=== PATIENT | female | born 1970 | race Caucasian/White ===

== ENCOUNTER 2025-09-01 08:47 | Emergency (ER) | payer OTHER, SELFPAY ==
--- OUTSIDE RECORDS SUMMARY | 2025-06-03 19:00 | XMS_ITS | Continuity of Care Document ---
Author Organization [facility] Address [address] [place] [phone] Phone Care Team Providers Care White Sugar Pan Tank Operator Name Role Phone Radha NUÑEZ, FACKatlyn, Juvenal Unavailable Unavailab le Procedures Procedure Date ELECTROCARDIOGRAM REPORT Advance Directives Directive Yes / No Effective Date File Name No Information Encounters Encounter Description Practice Location Reason(s) For Visit Diagnoses Date Provider Providers Copied on Encounter [facility], [address] [place] [address], [id number], tel:[phone] [facility] ER No Information Radha Sanford. [address] [place], [place] [address], [place], [id number], . tel:[phone] Referring Provider: Juvenal Garcia, [facility] [place] , [place], [address]. tel:[phone] Family History Family Member Type Diagnosis Age At Onset No Information Payers Payer name Insurance type Covered democrat ID Authorjim paniagua(s) [place] [id number] Social History Type Description Quantity Date Captured Comments Sex Female Smoking Status No Information Chief Complaint And Reason For Visit No Information Reason For Referral Reason For Referral No Information History Of Present Illness Encounter Date Complaint History Of Prese nt Illness No Information Functional Status Date Functional Assessmen t No Information Instructions Date Instruction Additional Infor mation No Information Assessments Type Assessment Date No Information Patient Care Teams Name Effective Dates (start - stop) Status Members No Information
--- NOTE | ~2025-09-01 | XR_ITS ---
Examination: XR chest 2V Clinical History: soa Comparison: None Technique: PA and Lateral Findings: Cardiomediastinal silhouette normal size and configuration. Lungs clear. No acute bony abnormality. Osteopenia. IMPRESSION: 1. No acute cardiopulmonary findings. Reviewed, dictated and finalized at location R.
[2025-09-01 09:19] VITALS: BP 121/78; PULSE 110; RESP 15; TEMP 36.9; O2SAT 98
[2025-09-01 09:25] VITALS: PULSE 110
[2025-09-01] MEDS: ALBUTEROL SULFATE NEB 2.5 MG/3 ML INH 15 MG INHALATION (09:26)
[2025-09-01] MEDS: IPRATROPIUM BR 0.02% INH SOLN 0.5 MG/2.5 ML VIAL 1.5 MG INHALATION (09:26)
[2025-09-01 09:35] VITALS: PULSE 97; RESP 24
[2025-09-01 09:55] LABS: Influenza A QL RT-PCR Negative (Negative); Influenza B QL RT-PCR Negative (Negative); RSV RNA, RT-PCR Negative (Negative); SARS-CoV-2 RNA PCR Negative (Negative)
--- OUTSIDE RECORDS SUMMARY | 2025-09-01 10:34 | XMS_ITS | Patient Health Record ---
Author Organization [facility] Address [address] [place] [address] Care Team Providers Care Veterinary Medicine Doctor Name Role Phone Shailesh Perdomo Primary Care Provider [phone] Herberthnisha Nanettemaile Unavailable [phone] Allergies Allergen (clinical drug ingredient) Drug/Non Drug Allergy documented on EMR Reaction Allergy Type Onset Date Status ketorolac Toradol (uncoded) Unknown Allergy Ac tive ibuprofen Ibuprofen Unknown Drug Allergy Active Results Component Value Reference Range Notes 14 Panel Urine Drug Screen Reviewed date:06/29/2025 03:53:48 PM Interpretation: Performing Lab: Notes/Report: THC pos CHALINO neg MOP (OPI) neg AMP pos MET pos BAR neg BZO neg MDMA pos MTD neg OXY neg PCP neg BUP neg TCA neg FTY pos Reason For Referral No Information Medications Medication SIG (Take, Route, Frequency, Duration) Notes Start Date End Date Status ARIPiprazole 5 MG TAKE 1 TABLET BY DRU EVERY DAY FOR 30 DAYS; Duration: 30 Active traZODone HCl 100 MG 2 tablets at bedtime Orally Once a day; Duration: 30 days As needed Active hydrOXYzine HCl 50 MG 1 tablet as needed Orally three times a day; Duration: 30 days Active Venlafaxine HCl ER 75 MG 1 capsule with food Orally Once a day; Duration: 30 days 09/22/2023 Active Venlafaxine HCl ER 150 MG 1 capsule with food Orally Once a day; Duration: 30 days Active Victoza 18 MG/3ML Subcutaneous; Durati on: 30 Days Active Social History Sex Assigned At : Social History Observation Description Sex Assigned At Female Dont use, Tobacco Use/Smoking Question Answer Notes Are you a current every day smoker Additional Findings: Tobacco User Heavy cigarett e smoker (20-39 cigs/day) Tobacco Control (Standard) Question Answer Notes Additional Findings: Tobacco user Rolls own ciga rettes Problems Problem Type SNOMED Code ICD Code Onset Dates Problem Status W/U Status Risk Notes Problem Tobacco user (104821855) Nicotine dependence, unspecified, uncomplicated (F17.200) Active confirmed Problem Generalized anxiety disorder (47611451) NELSON (generalized anxiety disorder) (F41.1) Active confirmed Problem Overweight (731020376) Over weight (E66.3) Active confirmed Problem Severe recurrent major depression without psychotic features (74424014) Severe episode of recurrent major depressive disorder, without psychotic features (F33.2) Active confirmed Problem History of methamphetamine use (69828257295848928 ) Methamphetamine use (F15.10) Active confirmed Vital Signs Heart Rate 131 /min 06/29/2025 Temperature 98.8 degrees Fahrenheit 06/29/2025 Respiratory Rate 24 /min 06/29/2025 Blood pressure diastolic 90 mm Hg 06/29/2025 Oximetry 96 % 06/29/2025 Blood pressure systolic 138 mm Hg 06/29/2025 Weight 282.6 lbs 06/29/2025 Encounters Encounter Location Date Provider Diagnosis [facility] [place] [address] 06/29/2025 Dedra Ross Methamphetamine use F15.10 and Over weight E66.3 [facility] [address] 06/20/2025 Dedra Ross Assessments Encounter Date Diagnosis (ICD Code) Assessment Notes Treatment Notes Treatment Clinical Notes Section Notes 06/29/2025 Methamphetamine use (ICD-10 - F15.10) Client reports she she does not want medications for AWM. Instead reports she would like contact information to be admitted for residential treatment. States she cannot be admitted today for services due to court date early next week, however, plans to complete intake process following court date. 06/29/2025 Over weight (ICD-10 - E66.3) Plan Of Treatment Pending Test Test Name Order Date Lipid Panel 09/09/2022 Vitamin B12* 09/09/2022 CBC With Differential/Platelet* 09/09/20 22 Vitamin D, 25-Hydroxy* 09/09/2022 TSH+Free T4* 09/09/2022 [id number] 09/09/2022 Next Appt Details Provider Name:Caren Immanuel simon, 09/14/2025 10:00:00 AM, [address], [place], [address], Insurance Providers Payer Name Payer Address Payer Phone Subscriber Number Group Number Insured Name Patient Relationship to Insured Coverage Start Date Coverage End Date [facility] Attn Claims Department [address] [place] [address] [id number] Marissa Austin Self - patient is the insured 1 [employer] Attn Claims Department [address] [place] [address] [id number] Marissa Austin Self - patient is the insured 1 Medical (General) History Medical History History ICD Code DM Surgical History Surgery Date(Month/Year) Cholecystectomy Hand reconstruction surgery- 42 years ag o. Hospitalization History Reason Date(Month/Year) pneumonia
--- OUTSIDE RECORDS SUMMARY | 2025-09-01 10:34 | XMS_ITS | Data Portability ---
Author Organization Sarah FAGAN Address [address] [facility] [place] [address] Assessment No assessment recorded. Plan of Treatment Reminders Order Date Submit Date Provider Last Modified By Organization Details Last Modified Time Details Appointments None recorded. Lab HbA1c (hemoglob in A1c), blood 2024 025 [email or web address] In-Office Order, Internal Use Only DO Not Attach Compendium DO Not Attach Compendium, Do Not Delete/merge, [id number] 16:44:55 cobalamin and folate panel, serum 2023 024 [email or web address] [facility], [address] [facility], [address], [place], [address], 5 18:40:24 CMP, serum or plasma 2023 024 JENN [facility], [address] [facility], [address], [place], [address], 4 13:10:44 microalbu min, urine 2023 024 JENN [facility], [address] [facility], [address], [place], [address], 4 13:10:44 lipid panel, serum 2023 024 JENN [facility], [address] [facility], [address], [place], [address], 4 13:10:44 CBC 2023 024 [email or web address] FRANCO, [address], [address], [place], [address], 5 04:21:55 CMP, serum or plasma 2022 023 JENN FERGUSONRP, [address], [address], [place], [address], 3 12:32:49 microalbu min, urine 2022 023 JENN FERGUSONRP, [address], [address], [place], [address], 3 12:32:50 lipid panel, serum 2022 023 JENN FERGUSONRP, [address], [address], [place], [address], 3 12:32:50 TSH, ultra-sen sitive, serum 2022 023 JENN FRANCO, [address], [address], [place], [address], 3 12:32:50 CBC 2022 023 JENN FERGUSONRP, [address], [address], [place], [address], 3 12:32:49 iron + TIBC + ferritin, serum 2022 023 JENN FERGUSONRP, [address], [address], [place], [address], 3 12:32:49 HbA1c (hemoglob in A1c), blood 2021 [email or web address] In-Office Order, Internal Use Only DO Not Attach Compendium DO Not Attach Compendium, Do Not Delete/merge, [id number] 12:10:36 lipid panel, serum 2021 JENN [facility], [address] [facility] [address], [address], [place], [address], 11:12:16 CMP, serum or plasma 2021 JENN [facility], [address] [facility] [address], [address], [place], [address], 11:12:17 microalbu min, urine 2021 JENN [facility], [address] [facility], [address], [place], [address], 11:12:15 CBC [facility] [address] [facility], [address], [place], [address], 11:12:18 Referral gastroent erologist referral 2022 023 carlotta Cortes MD, [address], [address], [place], [address], 4 09:37:44 cardiolog ist referral 2021 022 [facility], [address], [address], [place], [address], 14:44:47 Procedures None recorded. Surgeries None recorded. Imaging XR, chest 2024 025 [facility] ([facility]), [address], [place], [address], 5 14:36:44 CT, head, w/o contrast 2023 024 [facility] ([facility]), [address] [place], [address], 5 16:52:47 Medication Orders Medrol (Vadim) 4 mg tablets in a dose pack 2024 025 [id number], [address] [place], [address], 5 16:44:28 albuterol sulfate HFA 90 mcg/actua tion aerosol inhaler 2024 025 [id number], [address] [place], [address], 5 16:44:29 Augmentin 500 mg-125 mg tablet 2023 025 [id number], [address] [place], [address], 5 16:10:07 azithromy renaldo 250 mg tablet 2023 024 [id number] [address] [place], [address], 5 11:21:37 liragluti de 0.6 mg/0.1 mL (18 mg/3 mL) subcutane ous pen injector 2023 024 [facility] [address] In [facility], [address] [place], [address], 4 13:10:35 gabapenti n 300 mg capsule 2023 024 [id number], [address] [place], [address], 4 13:10:35 Victoza 2-Vadim 0.6 mg/0.1 mL (18 mg/3 mL) subcutane ous pen injector 2022 023 [facility], [address] [place] [address], [id number], 4 10:46:31 Ozempic 0.25 mg or 0.5 mg (2 mg/1.5 mL) subcutane ous pen injector 2021 022 [email or web address] [facility] #[id number], [address], [place], [address], 3 15:10:27 furosemid e 20 mg tablet 2021 022 [email or web address] [facility] #[id number], [address], [place], [address], 5 11:21:17 lisinopri l 10 mg tablet 2021 022 [facility]acy #[id number], [address], [place], [address], 2 12:10:41 Patient TargetsNo targets recorded. Patient Instructions Encounter Date Encounter Id Patient Instructions Last Modified By Organization Details Last Modified Time 09/21/2022 [id number] When You Want to Lose Weight: Care Instructions [email or web address] Not available 09/21/2022 12:10:36 chronic obstructive pulmonary disease (COPD): care instructions [email or web address] Not available 09/21/2022 12:10:37 learning about copd and how to prevent lung infections [email or web address] Not available 09/21/2022 12:10:36 controlling your asthma: care instructions Not available 09/21/2022 12:10:36 learning about asthma Not available 09/21/2022 12:10:37 leg and ankle edema: care instructions [email or web address] Not available 09/21/2022 12:10:37 04/27/2023 [id number] learning about type 2 diabetes [email or web address] Not available 04/27/2023 12:32:39 type 2 diabetes: care instructions Not available 04/27/2023 12:32:40 A healthy lifestyle: care instructions [email or web address] Not available 04/27/2023 12:32:40 A healthy lifestyle: care instructions [email or web address] Not available 04/27/2023 12:33:52 anemia: care instructions [email or web address] Not available 04/27/2023 12:32:40 high cholesterol : care instructions [email or web address] Not available 04/27/2023 12:32:40 06/15/2024 [id number] bronchitis: care instructions [email or web address] Not available 06/15/2024 13:10:33 learning about type 2 diabetes [email or web address] Not available 06/15/2024 13:10:33 type 2 diabetes: care instructions [email or web address] Not available 06/15/2024 13:10:32 A healthy lifestyle: care instructions [email or web address] Not available 06/15/2024 13:10:33 A healthy lifestyle: care instructions [email or web address] Not available 06/15/2024 13:10:32 anemia: care instructions Not available 06/15/2024 13:10:33 high cholesterol : care instructions [email or web address] Not available 06/15/2024 13:10:33 10/26/2024 [id number] Quitting Tobacco : Care Instructions [email or web address] Not available 10/26/2024 16:59:46 bronchitis: care instructions [email or web address] Not available 10/26/2024 16:59:46 learning about type 2 diabetes [email or web address] Not available 10/26/2024 16:59:46 type 2 diabetes: care instructions Not available 10/26/2024 16:59:46 02/28/2025 [id number] learning about type 2 diabetes [email or web address] Not available 02/28/2025 16:44:16 type 2 diabetes: care instructions [email or web address] Not available 02/28/2025 16:44:16 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) [address] [facility], [place], [address], 09/22/2022 11:12:15 09/21/20 22 09/22/2022 LIPID PANEL cholesterol, total 217 mg/dL 100-19 9 above high normal Not Available [facility] ([facility]) [address] [place], [address], 09/22/2022 11:12:16 09/21/2009/22/2022 LIPID PANEL triglyceride s 161 mg/dL 0-149 above high normal Not Available [facility] ([facility]) [address] [facility], [place], [address], 09/22/2022 11:12:16 09/21/2009/22/2022 LIPID PANEL HDL cholesterol 31 mg/dL >39 below low normal Not Available [facility] ([facility]) [address] [place], [address], 09/22/2022 11:12:16 09/21/20 22 09/22/2022 LIPID PANEL VLDL cholesterol krishan 30 mg/dL 5-40 Not Available [facility] ([facility]) [address] [place], [address], 09/22/2022 11:12:16 09/21/20 22 09/22/2022 LIPID PANEL LDL chol calc ([facility]) 156 mg/dL 0-99 above high normal Not Available [facility] ([facility]) [address] [place], [address], 09/22/2022 11:12:16 09/21/20 22 09/22/2022 COMP. METAB OLIC PANEL (14) glucose 129 mg/dL 70-99 above high normal Not Available [facility] ([facility]) [address] [place], [address], 09/22/2022 11:12:17 09/21/20 22 09/22/2022 COMP. METAB OLIC PANEL (14) BUN 7 mg/dL 6-24 Not Available [facility] ([facility]) [address] [place], [address], 09/22/2022 11:12:17 09/21/20 22 09/22/2022 COMP. METAB OLIC PANEL (14) creatinine 0.91 mg/dL 0.57-1 .00 Not Available [facility] ([facility]) [address] [place], [address], 09/22/2022 11:12:17 09/21/20 22 09/22/2022 COMP. METAB OLIC PANEL (14) eGFR 77 mL/mi n/1.7 3 >59 Not Available [facility] ([facility]) [address] [place], [address], 09/22/2022 11:12:17 09/21/20 22 09/22/2022 COMP. METAB OLIC PANEL (14) BUN/creatini ne ratio 8 9-23 below low normal Not Available [facility] ([facility]) [address] [place], [address], 09/22/2022 11:12:17 09/21/20 22 09/22/2022 COMP. METAB OLIC PANEL (14) sodium 137 mmol/ L 134-14 4 Not Available [facility] ([facility]) [address] [place], [address], 09/22/2022 11:12:17 09/21/20 22 09/22/2022 COMP. METAB OLIC PANEL (14) potassium 5.1 mmol/ L 3.5-5. 2 Speci men recei sonny hemol yzed. Value may be incre ased by hemol ysis. Clini krishan corre latio n indic ated. Not Available [facility] ([facility]) [address] [facility], [place], [address], 09/22/2022 11:12:17 09/21/20 22 09/22/2022 COMP. METAB OLIC PANEL (14) chloride 100 mmol/ L 96-106 Not Available [facility] ([facility]) [address] [facility], [place], [address], 09/22/2022 11:12:17 09/21/20 22 09/22/2022 COMP. METAB OLIC PANEL (14) carbon dioxide, total 19 mmol/ L 20-29 below low normal Not Available [facility] ([facility]) [address] [facility], [place], [address], 09/22/2022 11:12:17 09/21/20 22 09/22/2022 COMP. METAB OLIC PANEL (14) calcium 8.9 mg/dL 8.7-10 .2 Not Available [facility] ([facility]) [address] [place], [address], 09/22/2022 11:12:17 09/21/20 22 09/22/2022 COMP. METAB OLIC PANEL (14) protein, total 7.3 g/dL 6.0-8. 5 Not Available [facility] ([facility]) [address] [place], [address], 09/22/2022 11:12:17 09/21/20 22 09/22/2022 COMP. METAB OLIC PANEL (14) albumin 3.9 g/dL 3.8-4. 8 Not Available [facility] ([facility]) [address] [place], [address], 09/22/2022 11:12:17 09/21/20 22 09/22/2022 COMP. METAB OLIC PANEL (14) globulin, total 3.4 g/dL 1.5-4. 5 Not Available [facility] ([facility]) [address] [place], [address], 09/22/2022 11:12:17 09/21/20 22 09/22/2022 COMP. METAB OLIC PANEL (14) A/G ratio 1.1 1.2-2. 2 below low normal Not Available [facility] ([facility]) [address] [place], [address], 09/22/2022 11:12:17 09/21/20 22 09/22/2022 COMP. METAB OLIC PANEL (14) bilirubin, total <0.2 mg/dL 0.0-1. 2 Not Available [facility] ([facility]) [address] [place], [address], 09/22/2022 11:12:17 09/21/20 22 09/22/2022 COMP. METAB OLIC PANEL (14) alkaline phosphatase 157 IU/L 44-121 above high normal Not Available [facility] ([facility]) [address] [place], [address], 09/22/2022 11:12:17 09/21/20 22 09/22/2022 COMP. METAB OLIC PANEL (14) AST (SGOT) 24 IU/L 0-40 Not Available [facility] ([facility]) [address] [place], [address], 09/22/2022 11:12:17 09/21/20 22 09/22/2022 COMP. METAB OLIC PANEL (14) ALT (SGPT) 14 IU/L 0-32 Not Available [facility] ([facility]) [address] [place], [address], 09/22/2022 11:12:17 09/21/20 22 09/22/2022 CBC, PLATE LET, NO DIFFE RENTI AL WBC 12.2 x10e3 /uL 3.4-10 .8 above high normal Not Available [facility] ([facility]) [address] [facility], [place], [address], 09/22/2022 11:12:18 09/21/20 22 09/22/2022 CBC, PLATE LET, NO DIFFE RENTI AL RBC 5.03 x10e6 /uL 3.77-5 .28 Not Available [facility] ([facility]) [address] [facility], [place], [address], 09/22/2022 11:12:18 09/21/2009/22/2022 CBC, PLATE LET, NO DIFFE RENTI AL hemoglobin 11.7 g/dL 11.1-1 5.9 Not Available [facility] ([facility]) [address] [facility], [place], [address], 09/22/2022 11:12:18 09/21/2009/22/2022 CBC, PLATE LET, NO DIFFE RENTI AL hematocrit 38.3 % 34.0-4 6.6 Not Available [facility] ([facility]) [address] [place], [address], 09/22/2022 11:12:18 09/21/2009/22/2022 CBC, PLATE LET, NO DIFFE RENTI AL MCV 76 fL 79-97 below low normal Not Available [facility] ([facility]) [address] [place], [address], 09/22/2022 11:12:18 09/21/2009/22/2022 CBC, PLATE LET, NO DIFFE RENTI AL MCH 23.3 pg 26.6-3 3.0 below low normal Not Available [facility] ([facility]) [address] [place], [address], 09/22/2022 11:12:18 09/21/20 22 09/22/2022 CBC, PLATE LET, NO DIFFE RENTI AL MCHC 30.5 g/dL 31.5-3 5.7 below low normal Not Available [facility] ([facility]) [address] [facility], [place], [address], 09/22/2022 11:12:18 09/21/20 22 09/22/2022 CBC, PLATE LET, NO DIFFE RENTI AL RDW 16.8 % 11.7-1 5.4 above high normal Not Available [facility] ([facility]) [address] [facility], [place], [address], 09/22/2022 11:12:18 09/21/20 22 09/22/2022 CBC, PLATE LET, NO DIFFE RENTI AL platelets 432 x10e3 /uL 150-45 0 Not Available [facility] ([facility]) [address] [facility], [place], [address], 09/22/2022 11:12:18 09/21/20 22 09/22/2022 DIABE SANDY PATIE NT EDUCA TION pdf . Not Available [facility] ([facility]) [address] [facility], [place], [address], 09/22/2022 11:12:17 09/21/20 22 09/21/2022 HbA1c (hemo globi n A1c), blood HbA1c 8.7% Not Available In-Office Order Internal Use Only DO Not Attach Compendium DO Not Attach Compendium, Do Not Delete/merge, [id number] 09/21/2022 11:37:28 02/29/20 25 02/28/2025 HbA1c (hemo globi n A1c), blood HbA1c 7.6 Not Available In-Office Order Internal Use Only DO Not Attach Compendium DO Not Attach Compendium, Do Not Delete/merge, [id number] 02/28/2025 16:44:12 10/11/20 22 10/11/2022 XR, chest No observ ation record ed. [email or web address] [facility] Orders [address], [place], [address], 10/12/2022 10:21:59 10/11/20 22 10/11/2022 CT, angio gram, chest , w/ contr ast No observ ation record ed. [email or web address] [facility] Add On Lab Orders [address] [place], [address], 10/12/2022 10:22:29 10/13/20 22 10/13/2022 XR, chest No observ ation record ed. [facility] Add On Lab Orders [address] [place], [address], 10/14/2022 12:48:29 10/13/20 22 10/13/2022 imagi ng/di agnos tic resul t No observ ation record ed. [facility] Orders [address] [place], [address], 10/14/2022 12:48:59 10/27/20 24 10/27/2024 XR, hip + pelvi s, unila teral No observ ation record ed. [address] [place], [address], 11/16/2024 12:04:59 11/30/19 25 11/30/2024 XR, hand No observ ation record ed. [address] [place], [address], 11/30/2024 21:36:50 06/30/20 25 06/30/2025 XR, chest No observ ation record ed. [facility] [address] [place], [address], 07/19/2025 14:49:46 Result Notes None recorded. Problems Name Problem SNOMED Code Status Onset Date Resolution Date Notes Provider Name and Address Organization Details Recorded Time Asthma 820008518 Active 2016 Not Available [facility] 2 21:12:53 Chronic anxiety 062651447 Active 2018 F41.9 Not Available [facility] 2 21:12:53 Nicotine dependen ce 88715394 Active 2018 F17.200 Not Available [facility] 2 21:12:53 Chronic obstruct lisa pulmonar y disease 58263331 Completed 201809/21/2022 J44.9 Roberta Aguilar MD Attn: Accounting ,[address], [place], [address] , [facility] 2 11:55:19 [facility] maria esther [id number] Completed 201807/28/2019 I10 Meena Villasenor RN null, [place] - [facility] 9 15:54:48 [facility] maria esther 55588445 Active 2018 I10 Not Available [facility] 2 21:12:53 Type 2 diabetes mellitus 02431200 Active 2020 Not Available [facility] 2 21:12:53 Paresthe liam 02242530 Active 2020 hands Not Available [facility] 2 21:12:53 Diarrhea l disorder 924916552 Active 2020 Not Available [facility] 2 21:12:53 Morbid obesity 129815004 Active 2020 Not Available [facility] 2 21:12:53 Edema of lower extremit y 906253621 Active 2020 Not Available [facility] 2 21:12:53 Bronchit is 85708056 Active 2021 Not Available [facility] 2 21:12:53 Fatigue 67347546 Active 2021 Not Available [facility] 2 21:12:53 Microcyt ic anemia 447690409 Active 2021 Not Available [facility] 2 21:12:53 Hyperlip idemia 48999495 Active 2021 Not Available [facility] 2 21:12:53 Anemia 128003968 Active 2022 Roberta Aguilar MD Attn: Accounting ,[address], [place], [address] , [place] [facility] 3 12:30:02 Amnesia 19286798 Active 2023 Roberta Aguilar MD Attn: Accounting ,[address] [place], [address] , [facility] 4 14:37:29 Forgetfu l 96887410 Active 2023 Roberta Aguilar MD Attn: Accounting ,[address] [place], [address] , [facility] 4 16:54:50 Pain in right lower limb 942838587 Active 2023 Roberta Aguilar MD Attn: Accounting ,[address] [place], [address] , [facility] 4 17:01:30 Disorder of upper limb 282238783 Active 2023 Weakness hands Roberta Aguilar MD Attn: Accounting ,[address] [place], [address] , [facility] 4 17:07:15 Muscle weakness of limb 642230951 Active 2023 Hands Roberta Aguilar MD Attn: Accounting ,[address] [place], [address] , [facility] 4 17:08:41 Exacerba tion of moderate persiste nt asthma 580553686 Active 2024 Roberta Aguilar MD Attn: Accounting ,[address] [place], [address] , [place] [facility] 5 16:40:50 Notes:Some problems listed i n Documents: #[id number], #[id number], #[id number], #[id number] could not be added to this patient's chart. Please review these documents and add these problems to the patient's chart manually as needed. Problem Notes None recorded. Procedures Surgical History Date Name Laterality Status Provider Name and Address Organization Details Recorded Time Cholecystectomy completed Norberto Montanez MA [place] - [facility] 10/22/2017 12:05:01 Imaging Results None recorded. Procedure Notes None recorded. Medical Equipment None Reported. Allergies Allergen ID Allergen Name Allergen Category Reaction Reaction Severity Criticality Documentation Date Start Date Code Code System Note Provider Name and Address Organization Details Recorded Time 633927 Toradol medicatio n hives Not available Not available 10/22/2017 56244 RxNorm Norberto Montanez MA [place], [place] - [facility] 7 11:58:59 Medications Name Sig Start Date Stop Date Status Note LastModified by Organization Details LastModified Time amoxicill in 500 mg capsule Take 1 capsule every 8 hours by oral route. 09/21 completed Not Available Not Available Not Available metformin 500 mg tablet TAKE 1 TABLET BY MOUTH TWICE A DAY DIRECTED 04/27 completed Diarrhea Not Available Not Available Not Available promethaz ine-DM 6.25 mg-15 mg/5 mL oral syrup 06/14 completed Not Available Not Available Not Available venlafaxi ne ER 37.5 mg capsule,e xtended release 24 hr TAKE 1 CAPSULE BY MOUTH EVERY DAY WITH FOOD (PLEASE MAKE APPOINTM ENT)\ 09/21 completed Not Available Not Available Not Available prednison e 10 mg tablet TAKE 4 TABS DAILY X3 DAYS, 3 TABS DAILY X3 DAYS, 2 TABS DAILY X3 DAYS THEN 1 TAB DAILY X3 DAYS active Not Available Not Available No t Available venlafaxi ne ER 75 mg capsule,e xtended release 24 hr TAKE 1 CAPSULE BY MOUTH EVERY DAY WITH FOOD FOR 30 DAYS active Not Available Not Available No t Available benztropi ne 0.5 mg tablet TAKE 1 TABLET BY MOUTH TWICE A DAY FOR 30 DAYS 07/13 completed Not Available Not Available Not Available ipratropi um 0.5 mg-albute rol 3 mg (2.5 mg base)/3 mL nebulizat ion soln INHALE THE CONTENTS OF 1 VIAL BY NEBULIZA TION ROUTE 4 TIMES PER DAY 04/27 completed Not Available Not Available Not Available albuterol sulfate 2.5 mg/3 mL (0.083 %) solution for nebulizat ion USE 1 VIAL EVERY 4-6HRS INHALED VIA NEBULIZE R NEEDED active Not Available Not Available No t Available trazodone 50 mg tablet TAKE 4 TABLETS BY MOUTH EVERY DAY AT BEDTIME NEEDED 12/03 completed Not Available Not Available Not Available cetirizin e 10 mg tablet TAKE 1 TABLET BY MOUTH EVERY DAY 07/13 completed Not Available Not Available Not Available atorvasta tin 10 mg tablet Take 1 tablet every day by oral route at dinner for 30 days. 04/27 completed Not Available Not Available Not Available azithromy renaldo 250 mg tablet TAKE 2 TABLETS BY MOUTH TODAY, THEN TAKE 1 TABLET DAILY FOR 4 DAYS DIRECTED 07/13 completed Not Available Not Available Not Available benzonata te 200 mg capsule TAKE 1 CAPSULE BY MOUTH THREE TIMES A DAY NEEDED 09/21 completed Not Available Not Available Not Available albuterol sulfate 1.25 mg/3 mL solution for nebulizat ion Inhale 3 mL 3 times a day by inhalati on route as needed for 30 days. 06/18 completed Not Available Not Available Not Available prednison e 20 mg tablet TAKE 1 TABLET IN THE MORNING WITH FOOD FOR 5 DAYS active Not Available Not Available No t Available clindamyc in HCl 150 mg capsule 05/10 completed Not Available Not Available Not Available venlafaxi ne ER 150 mg capsule,e xtended release 24 hr TAKE 1 CAPSULE BY MOUTH EVERY DAY WITH FOOD FOR 30 DAYS active Not Available Not Available No t Available olanzapin e 10 mg tablet TAKE 1 TABLET BY MOUTH EVERY DAY FOR 3 DAYS active Not Available Not Available No t Available hydroxyzi ne HCl 50 mg tablet TAKE 1 TABLET BY MOUTH THREE TIMES A DAY NEEDED FOR 30 DAYS active Not Available Not Available No t Available acetamino phen 300 mg-codein e 30 mg tablet 06/14 completed Not Available Not Available Not Available ciproflox acin 500 mg tablet TAKE 1 TABLET BY MOUTH TWO TIMES A DAY FOR 7 DAYS 10/26 completed Not Available Not Available Not Available sulfameth oxazole 800 mg-trimet hoprim 160 mg tablet TAKE 1 TABLET BY MOUTH TWICE A DAY 04/27 completed Not Available Not Available Not Available tramadol 50 mg tablet 10/09 completed Not Available Not Available Not Available oxycodone -acetamin ophen 5 mg-325 mg tablet TAKE 1 TABLET BY MOUTH EVERY 6 HOURS NEEDED FOR PAIN 09/21 completed Not Available Not Available Not Available amoxicill in 875 mg tablet TAKE 1 TABLET BY MOUTH TWICE A DAY FOR 7 DAYS 10/26 completed Not Available Not Available Not Available amitripty line 25 mg tablet TAKE 1 TABLET BY MOUTH TWICE A DAY WITH MEALS 11/06 completed Not Available Not Available Not Available trazodone 100 mg tablet TAKE 2 TABLETS BY MOUTH ONCE A DAY AT BEDTIME NEEDED 30 DAYS active Not Available Not Available No t Available OneTouch Ultra Test strips USE TO TEST ONCE DAILY active Not Available Not Available No t Available phenazopy ridine 100 mg tablet TAKE 1 TABLET BY MOUTH EVERY 8 HOURS NEEDED FOR BLADDER SPASMS active Not Available Not Available No t Available benzonata te 100 mg capsule TAKE 1 CAPSULE BY MOUTH EVERY 8 HOURS NEEDED 04/27 completed Not Available Not Available Not Available fluvoxami ne 100 mg tablet TAKE 3 TABLETS BY MOUTH EVERY EVENING 11/06 completed Not Available Not Available Not Available oseltamiv ir 75 mg capsule TAKE 1 CAPSULE BY MOUTH EVERY 12 HOURS FOR 5 DAYS 04/27 completed Not Available Not Available Not Available metformin 1,000 mg tablet TAKE 1 TABLET BY MOUTH TWICE A DAY DIRECTED active Not Available Not Available No t Available triamcino lone acetonide 0.1 % topical ointment APPLY TO AFFECTED AREA TWICE A DAY 04/27 completed Not Available Not Available Not Available lisinopri l 10 mg tablet TAKE 1 TABLET BY MOUTH EVERY DAY 2024 active Not Available Not Available Not Avai lable gabapenti n 300 mg capsule TAKE 1 CAPSULE BY MOUTH THREE TIMES A DAY active Not Available Not Available No t Available hydroxyzi ne HCl 25 mg tablet 10/09 completed Not Available Not Available Not Available olanzapin e 15 mg tablet TAKE 1 TABLET BY MOUTH EVERY DAY FOR 30 DAYS active Not Available Not Available No t Available furosemid e 20 mg tablet TAKE 1 TABLET BY MOUTH EVERY DAY NEEDED 07/13 completed Not Available Not Available Not Available fluvoxami ne 50 mg tablet 05/10 completed Not Available Not Available Not Available levofloxa renaldo 750 mg tablet TAKE 1 TABLET BY MOUTH EVERY DAY 04/27 completed Not Available Not Available Not Available methylpre dnisolone 4 mg tablets in a dose pack TAKE 6 TABLETS ON DAY 1 DIRECTED ON PACKAGE AND DECREASE BY 1 TAB EACH DAY FOR A TOTAL OF 6 DAYS active Not Available Not Available No t Available albuterol sulfate HFA 90 mcg/actua tion aerosol inhaler INHALE 2 PUFFS BY MOUTH EVERY 4 HOURS NEEDED active Not Available Not Available No t Available pioglitaz one 30 mg tablet TAKE 1 TABLET BY MOUTH EVERY DAY 09/21 completed Not Available Not Available Not Available fluticaso ne propionat e 50 mcg/actua tion nasal spray,deandre pension USE 1 SPRAY IN EACH NOSTRIL EVERY NIGHT BEFORE BED active Not Available Not Available No t Available amoxicill in 875 mg-potass ium clavulana te 125 mg tablet TAKE 1 TABLET BY MOUTH TWICE A DAY 07/13 completed Not Available Not Available Not Available amoxicill in 500 mg-potass ium clavulana te 125 mg tablet Take 1 tablet every 12 hours by oral route. 02/28 completed Not Available Not Available Not Available aripipraz ole 5 mg tablet TAKE 1 TABLET BY MOUTH EVERY DAY FOR 30 DAYS active Not Available Not Available No t Available Alcohol Prep Pads Apply 1 pad every day by topical route as directed for 30 days. 12/03 completed Not Available Not Available Not Available nitrofura ntoin monohydra te/macroc rystals 100 mg capsule TAKE 1 CAPSULE BY MOUTH TWICE A DAY 10/26 completed Not Available Not Available Not Available Oysco 500/D 500 mg-5 mcg (200 unit) tablet TAKE 1 TABLET BY MOUTH TWICE A DAY WITH MEALS 04/27 completed Not Available Not Available Not Available Symbicort 160 mcg-4.5 mcg/actua tion HFA aerosol inhaler INHALE 2 PUFFS BY MOUTH TWICE DAILY active Not Available Not Available No t Available liragluti de 0.6 mg/0.1 mL (18 mg/3 mL) subcutane ous pen injector INJECT 1.2 MG UNDER THE SKIN ONCE DAILY 2024 active Not Available Not Available Not Avai lable lurasidon e 40 mg tablet TAKE 1 TABLET BY MOUTH EVERY DAY IN THE EVENING WITH FOOD active Not Available Not Available No t Available Spiriva Respimat 1.25 mcg/actua tion solution for inhalatio n INHALE 2 PUFFS INTO THE LUNGS EVERY DAY active Not Available Not Available No t Available TRUEplus Pen Needle 31 gauge x 3/16 USE DIRECTED with victoza active Not Available Not Available No t Available Qvar RediHaler 80 mcg/actua tion HFA breath activated aerosol 06/14 completed Not Available Not Available Not Available Ozempic 0.25 mg or 0.5 mg (2 mg/1.5 mL) subcutane ous pen injector Inject by subcutan eous route for 28 days. 11/03 completed Not Available Not Available Not Available OneTouch Ultra Blue Test Strip USE ONCE DAILY DIRECTED 11/06 completed Not Available Not Available Not Available OneTouch Ultra2 Meter 06/18 completed Not Available Not Available Not Available OneTouch Delica Plus Lancet 33 gauge USE ONCE DAILY DIRECTED 06/18 completed Not Available Not Available Not Available Vitals Date Recorded Body height Body mass index (BMI) Body weight Oxygen saturation Oxygen saturation in Arterial blood by Pulse oximetry Heart rate Systolic And Diastolic Provider Name and Address Organization Details Last Updated DateTime 5 167.01 cm 44.2 kg/m2 901356. 12 g 98 % 98 % 113 /min 163/98 mm[Hg] Ivania Thomas MA [facility] 5 16:15:34 Date Recorded Body height Body mass index (BMI) Body weight Body temperature Oxygen saturation Oxygen saturation in Arterial blood by Pulse oximetry Heart rate Systolic And Diastolic Provider Name and Address Organization Details Last Updated DateTime 3 167.01 cm 50.6 kg/m2 283371. 23 g 98.2 [degF] 97 % 97 % 101 /min 132/80 mm[Hg] Ale Carbajal MA [facility] 3 11:43:28 Date Recorded Body height Body mass index (BMI) Body weight Oxygen saturation Oxygen saturation in Arterial blood by Pulse oximetry Heart rate Systolic And Diastolic Provider Name and Address Organization Details Last Updated DateTime 4 167.01 cm 44.9 kg/m2 352960. 49 g 97 % 97 % 108 /min 152/86 mm[Hg] Ale Carbajal MA [facility] 4 12:39:35 Date Recorded Body height Body mass index (BMI) Body weight Body temperature Heart rate Oxygen saturation Oxygen saturation in Arterial blood by Pulse oximetry Systolic And Diastolic Provider Name and Address Organization Details Last Updated DateTime 2 167.01 cm 53.5 kg/m2 556820. 89 g 98.3 [degF] 103 /min 96 % 96 % 136/84 mm[Hg] Ale Carbajal MA [facility] 2 11:26:48 Date Recorded Body height Body mass index (BMI) Body weight Heart rate Oxygen saturation Oxygen saturation in Arterial blood by Pulse oximetry Systolic And Diastolic Provider Name and Address Organization Details Last Updated DateTime 4 167.01 cm 45.1 kg/m2 186881. 23 g 114 /min 92 % 92 % 146/70 mm[Hg] Ivania Thomas MA [facility] 4 15:51:32 Social History Question Answer Notes LastModified by Organizat ion Details LastModified Time Tobacco Smoking Status Current Every Day Smoker Ael Carbajal MA null, [facility] 04/27/2023 11:36:35 What Was The Date Of Your Most Recent Tobacco Screening? 02/28/2025 Information not available 02/28/2025 How Much Tobacco Do You Smoke? 1 PPD Information not available 10/22/2017 Has Tobacco Cessation Counseling Been Provided? Yes Information not available 04/27/2023 On What Date Was Tobacco Cessation Counseling Provided? 02/28/2025 Information not available 02/28/2025 How Many Years Have You Smoked Tobacco? 25 Information not available 10/22/2017 Sex: Unknown Functional Status Question Answer Note LastModified by Organization D etails LastModified Time Do you or have you ever used any other forms of tobacco or nicotine? No Information not available 04/27/2023 What is your level of alcohol consumption? Moderate Information not available 10/22/2017 Mental Status None recorded. Family History Relationship Description Onset Age of this Age Resolved Age Notes LastModified by Organization Details LastModified Time Father Harmful pattern of use of alcohol Not available 10/22 12:05:56 Father Asthma Not available 10/22/2017 12:06:03 Father Heart disease Not available 10/22 12:06:33 Father Hypertensive disorder Not available 10/22 12:06:41 Father Hypercholest erolemia Not available 10/22 12:06:50 Mother Malignant neoplasm of breast suspected Not available 10/22 12:06:25 Medical History Condition Response High Blood Pressure Y Anxiety Disorder Y Acid Reflux (GERD) Y Asthma Y Gynecological HistoryNo gynecological history recorded. Obstetrics History GPAL:G 0 P 0 0 0 0 Past Encounters Encounter ID Performer Location Encounter Start Date Encounter Closed Date Diagnosis/Indication Diagnosis SNOMED-CT Code Diagnosis ICD10 Code Diagnosis IMO Codes Diagnosis Note [id number] MD Lorin Goel (Adult Med) [address] [place] [address] [id number] 10/22/2017 11:37:09 10/22/2017 12:48:40 Chronic obstructive pulmonary disease 29055509 J44.9 On inhalers, nebulizer with solution at home, recently just recovered from pneumonia. Went Er. Nicotine dependence 5629 4008 F17.200 On patches. Morbid obesity 235328478 E66.01 Diet, exercise and lose weight. Hyperglycemia 15219185 R 73.9 Female uri nary stress incontinence 30945546 N39.3 Screening mammography 24 803616 Z12.31 Bipolar disorder 6775729 4 F31.9 Adult heal th examination 479575331 Z00.00 [id number] Nicol Adamson MD [facility] (Adult Med) [address] [place] [address] [phone] 0 02/17/2018 16:09:40 02/17/2018 17:24:50 Acute exacerbation of chronic obstructive pulmonary disease 102078695 J44.1 Acute pharyngitis 295247 003 J02.9 Will be on Z-vadim. Chronic ob structive pulmonary disease 02304683 J44.9 On inhalers, nebulizer with solution at home, recently just recovered from pneumonia. Went Er. Nicotine dependence 5629 4008 F17.200 On patches. Screening mammography 24 789706 Z12.31 [id number] MD Lorin Goel (Adult Med) [address] [place] [address] [phone] 0 05/10/2019 16:27:03 05/11/2019 09:04:35 Essential hypertension 36009876 I10 Arjun salt diet. Avoid NSAID: aspirin, naproxen and ibuprofen. Chronic ob structive pulmonary disease 13834593 J44.9 On inhalers, nebulizer with solution at home, recently just recovered from pneumonia. Went Er. Nicotine dependence 5629 4008 F17.200 On patches. Chronic anxiety 79729305 9 F41.9 Under the care of behavior health clinic. [id number] Nicol Adamson MD [facility] (Adult Med) [address] [place] [address] [phone] 0 10/09/2019 15:56:18 10/09/2019 17:15:35 Type 2 diabetes mellitus 51165211 E11.65 Diabetic diet, exercise and lose weight , wanting glucometer . Will buy one aspirn/Day OTC. She said. Dyslipidem ia due to type 2 diabetes mellitus 5191605010 02 E78.5 On low saturated fat diet, exercise and lose weight. Chronic ob structive pulmonary disease 51961972 J44.9 On inhalers, nebulizer with solution at home, recently just recovered from pneumonia. Went Er. Nicotine dependence 5629 4008 F17.200 On patches. Morbid obesity 809215695 E66.01 Diet, exercise and lose weight. Screening for malignant neoplasm of cervix 840567456 Z12.4 [id number] Nicol Adamson MD [facility] (Adult Med) [address] [place] [address] [phone] 0 06/14/2020 09:47:59 06/18/2020 18:16:33 Chronic obstructive pulmonary disease 03371355 J44.9 On inhalers, nebulizer with solution at home, recently just recovered from pneumonia. Went Er. Essential hypertension 62005834 I10 Arjun salt diet. Avoid NSAID: aspirin, naproxen and ibuprofen. Type 2 mariella betes mellitus without complication 084935648 E11.65 dIABETIC DIET, EXERCISE, KEEP THE weight DOWN. Type 2 mariella betes mellitus 96616386 E11.65 Diabetic diet, exercise and lose weight , wanting glucometer . Will buy one aspirn/Day OTC. She said. Dyslipidem ia due to type 2 diabetes mellitus 4036322259 02 E78.5 On low saturated fat diet, exercise and lose weight. Swelling of hand 7908754 03 R22.33 DISCUSSED WITH PATIENT, SHE prefers TO TRY DIURETICS FIRST BEFORE ANY TEST. [id number] MD Lorin Goel (Adult Med) [address] [place] [address] [phone] 0 12/03/2020 08:05:32 12/04/2020 10:02:26 Painless rectal bleeding 960936855 K62.5 Discussed with patient, will refer to GI specialist . Diabetic p eripheral neuropathy 592399957 E11.40 She agreed for the trial of medication . [id number] MD Lorin Goel (Adult Med) [address] [place] [address] [phone] 0 12/18/2020 14:49:46 12/19/2020 10:19:59 Acute upper respiratory infection 58002452 J06.9 Discussed with patient, she agreed. Tobacco de pendence syndrome 73863048 F17.200 Advised her to quit cigarettes smoking, she will try. [id number] [facility] [address] [place] [address] [phone] 0 01/27/2021 08:18:41 01/28/2021 11:20:21 Diabetic peripheral neuropathy 428525544 E11.40 She agreed for the trial of medication . Chronic anxiety 73936335 9 F41.9 Under the care of behavior health clinic. Chronic ob structive pulmonary disease 74372779 J44.9 On inhalers, nebulizer with solution at home, recently just recovered from pneumonia. Went Er. Essential hypertension 35433043 I10 Low salt diet. Avoid NSAID: aspirin, naproxen and ibuprofen. On lisinopril . Nicotine dependence 5629 4008 F17.200 On patches. Asthma 007160810 J45.90 9 Advised her to stop cigarettes smoking. [id number] MD Lorin Almazan (Adult Med) [address] [place] [address] [phone] 0 06/18/2021 11:05:10 06/26/2021 05:44:14 Type 2 diabetes mellitus 69254252 E11.9 Change metformin to 500 mg BID Essential hypertension 31561764 I10 Diarrheal disorder 54221 3008 R19.7 Paresthesia 72904424 R20 .2 Nicotine dependence 5629 4008 F17.200 Chronic ob structive pulmonary disease 34155355 J44.9 Chronic anxiety 94903221 9 F41.9 Asthma 030435883 J45.90 9 Morbid obesity 017590357 E66.01 [id number] MD Lorin Almazan (Adult Med) [address] [place] [address] [phone] 0 11/06/2021 10:19:24 11/07/2021 11:58:06 Bronchitis 12904886 J40 [id number] MD Lorin Almazan (Adult Med) [address] [place] [address] [phone] 0 2021 09:53:56 11/13/2021 17:37:36 Bronchitis 00714208 J40 [id number] MD Lorin Almazan (Adult Med) [address] [place] [address] [phone] 0 12/11/2021 14:40:26 12/12/2021 13:33:34 Chronic obstructive pulmonary disease 59623734 J44.9 Fatigue 16519170 R53.83 [id number] MD Lorin Almazan (Adult Med) [address] [place] [address] [phone] 0 09/21/2022 10:26:29 09/22/2022 10:47:03 Type 2 diabetes mellitus 92483275 E11.9 D/C metformin. Will try semaglutid e. Pt will call with FBS results Essential hypertension 62723285 I10 Asthma 083088772 J45.90 9 Chronic ob structive pulmonary disease 99422431 J44.9 Edema of l ower extremity 052170548 R60.0 Morbid obesity 895190313 E66.01 [id number] MD Lorin Almazan (Adult Med) [address] [place] [address] [phone] 0 04/27/2023 11:33:38 04/28/2023 14:57:09 Morbid obesity 506479494 E66.01 Type 2 mariella betes mellitus 18286842 E11.9 Increase dose to 1.2 mg/d. Pt will call with BG results Microcytic anemia 780254 007 D50.9 Hyperlipidemia 20097835 E78.5 Anemia 238307844 D64.9 [id number] MD Lorin Almazan (Adult Med) [address] [place] [address] [id number] 0 06/15/2024 12:24:58 06/16/2024 12:00:12 Type 2 diabetes mellitus 48607204 E11.9 Increase dose to 1.8 mg/d. Pt will call with BG results Morbid obesity 611538681 E66.01 Microcytic anemia 584990 007 D50.9 Hyperlipidemia 96599809 E78.5 Anemia 192755203 D64.9 Paresthesia 33069911 R20 .2 Bronchitis 31988918 J40 [id number] MD Lorin Almazan (Adult Med) [address] [place] [address] [id number] 0 10/26/2024 15:26:41 10/27/2024 11:29:00 Bronchitis 66685955 J40 Nicotine dependence 5629 4008 F17.200 Paresthesia 55712197 R20 .2 Type 2 mariella betes mellitus 98009324 E11.9 Increase dose to 1.8 mg/d. Pt will call with BG results Forgetful 80671122 R41.[address] head Pain in ri ght lower limb 500753653 M79.604 Muscle [place]a [place] of limb 563300576 M62.81 [id number] [facility] [address] [place] [address] [id number] 0 02/28/2025 15:52:25 03/02/2025 15:19:36 Exacerbation of moderate persistent asthma 778870982 J45.41 [id number] Advised to go to ED if sx worsen Type 2 mariella betes mellitus 68927593 E11.9 Increase dose to 1.8 mg/d. Pt will call with BG results Health Concerns Section Related Observation LastModified by Organization Detai ls LastModified Time None Recorded Concern Status LastModified by Organization Details LastModified Time None Recorded Advance Directives Directive None Recorded Payers Insurance Date Sequence Insurance Name Policy Number Policy Roldan Covered Member ID Roldan Member ID Guarantor Name 03/02/2025 1 [facility] ON OR AFTER 05/01/21 (MEDICAID REPLACEMENT - HMO) Marissa Austin [id number] Marissa Austin 06/15/2024 1 [facility] PRIOR TO 05/01/2021 (MEDICAID REPLACEMENT - HMO) Marissa Austin [id number] Marissa Austin 06/15/2024 1 [facility] - [facility] PRIOR TO 2021 (MEDICAID REPLACEMENT - HMO) Marissa Austin [id number] Marissa Austin 06/15/2024 1 [place] [employer] Marissa Austin [id number] Marissa Austin 06/15/2024 1 [place] [facility] OF PUBLIC AID Marissa Austin [id number] Marissa Austin 06/15/2024 1 [facility] (MEDICAID HMO) Marissa Austin [id number] Marissa Austin Notes Date Note Type Note Provider Name and Address Organization Details Recorded Time 09/21/2022 text/html Continues to have diarrhea from using metformin. Would like to try Ozempic and free style monitor. Hospitalized in past year for SOB. Reportedly told her heart was bad. Roberta Aguilar MD Attn: [address] [place], [address], [facility] 09/21/2022 12:11:53 04/27/2023 text/html No significant change in blood glucose on current Victoza dose. She did not start atorvastatin due to eye swelling from previous trial Roberta Aguilar MD Attn: Accounting[address] [facility], [place], [address], [facility] 04/27/2023 12:34:03 06/15/2024 text/html Has severe pain in both hands. Productive cough in past week Roberta Aguilar MD Attn: Accounting[address] [facility], [place], [address], [facility] 06/15/2024 13:10:41 10/26/2024 text/html Here for f/u. She was unable to get CT head or see neurologist. Has pain radiating from right hip to knee. Some benefit from ibuprofen and acetaminophen. She has recurrent URI. She continues to smoke and has a productive cough. She is experiencing forgetfulness and is dropping items from her hand because of numbness. She is a poor historian. Roberta Aguilar MD Attn: Accounting[address] [facility], [place], [address], [facility] 10/26/2024 17:09:27 02/28/2025 text/html Has experienced difficulty breathing for past four months. Was seen in UC and rx'd with antibiotics x2. Afraid to go to ED because she does not want to be admitted. Lost both parents recently. She has increased nebulizer use Roberta Aguilar MD Attn: Accounting,[address] [facility], [place], [address], [facility] 02/28/2025 16:50:06 OBGyn Episode No OBEpisode recorded.
--- OUTSIDE RECORDS SUMMARY | 2025-09-01 10:34 | XMS_ITS | Clinical Summary ---
Author Organization [facility] Address [address] [place] [id number] Care Team Providers Care Hearing Aid Consultant Name Role Phone No, Physician Primary Care Provider [phone] Encounters Date Type Department Care Team Description 08/08/2025 7:55 AM CDT Lab [facility] [address] [place] [phone] from Last 3 Months Social History Tobacco Use Types Packs/Day Years Used Date Smoking Tobacco: Never Assessed Comments Unknown Sex and Gender Information Value Date Recorded Sex Assigned at Not on file Legal Sex Female 7:52 AM CDT Gender Identity Not on file Sexual Orientation Not on file Plan of Treatment Not on file Procedures Procedure Name Priority Date/Time Associated Diagnosis Comments EGFR Routine 08/08/2025 8:31 AM CDT TSH Routine 08/08/2025 8:31 AM CDT LIPID PANEL Routine 08/08/2025 8:31 AM CDT COMPREHENSIVE METABOLIC PANEL Routine 08/08/2025 8:31 AM CDT HIV 1/2 ANTIBODY PLUS P24 ANTIGEN Routine 08/08/2025 8:31 AM CDT RPR Routine 08/08/2025 8:31 AM CDT HEPATITIS C ANTIBODY Routine 08/08/2025 8:31 AM CDT HEPATITIS B SURFACE ANTIBODY (IMMUNE STATUS) Routine 08/08/2025 8:31 AM CDT HEPATITIS B CORE ANTIBODY, TOTAL Routine 08/08/2025 8:31 AM CDT from Last 3 Months Results * eGFR (08/08/2025 8:31 AM CDT) eGFR >90 >=60 mL/min/1. 73 m2 Comment: Interpretive Data Reference Interval Normal >/= 90 mL/min/1.73m2 Mildly decreased* 60 - 89 mL/min/1.73m2 Mildly to moderately decreased 45 - 59 mL/min/1.73m2 Moderately to severely decreased 30 - 44 mL/min/1.73m2 Severely decreased 15 - 29 mL/min/1.73m2 Kidney Failure < 15 mL/min/1.73m2 *Relative to young adult level Estimated glomerular filtration rate is determined by the 2020 CKD-EPI equation recommended by the National Kidney Foundation (A Unifying Approach to GFR Estimation: Recommendations of the NKF-ASK Task Force on Reassessing the Inclusion of Race in Diagnosing Kidney Disease, JASN 2020). The CKD-EPI equation should not be used for patients with unstable renal function and has not been validated in children and those over 70. Current interpretive data was last reviewed 2021. Blood 08/08/2025 8:31 AM CDT 08/08/2025 8:35 AM CDT Sheba Acevedo MD LAB BLOOD ORDERABLES Final Resul t [facility] [address] [facility] [place] [address] * HIV 1/2 Antibody plus p24 Antigen Blood (08/08/2025 8:31 AM CDT) HIV 1/2 ab + p24 ag Nonreactive Nonreactive Comment:Nonreactive for HIV- 1 antigen and HIV-1/HIV-2 antibodies. No laboratory evidence of HIV infection. If acute HIV infection is suspected, consider testing for HIV-1 RNA. Current interpretive data was last revised on 22. Blood 08/08/2025 8:31 AM CDT 08/08/2025 8:36 AM CDT Sheba Acevedo MD LAB MICROBIOLOGY - GENERAL ORDER TIMOTEO Final Result Performing Organization Address City/[facility]/ZIP Co de Phone Number GALINDO [address] [place] [address] * Hepatitis C antibody Blood (08/08/2025 8:31 AM CDT) Hep C Ab Nonreactive Nonreactive Comment: Antibodies to HCV not detected. Does NOT exclude the possibility of recent exposure to HCV. Current interpretive data was last revised on 22 Interpretive Data Nonreactive: Antibodies to HCV not detected. Does NOT exclude the possibility of recent exposure to HCV. Equivocal: Equivocal for HCV antibodies. Supplemental molecular testing will be automatically performed to determine infection status in accordance with current CDC screening recommendations. Reactive: Positive for HCV antibodies. This may represent current or past HCV infection. Supplemental molecular testing will be automatically performed to determine current infection status in accordance with current CDC screening recommendations. Interpretive data was last revised on 2020. Blood 08/08/2025 8:31 AM CDT 08/08/2025 8:35 AM CDT Sheba Acevedo MD LAB MICROBIOLOGY - GENERAL ORDER TIMOTEO Final Result Performing Organization Address [facility] Co de Phone Number SOULEYMAN[address] [place] [address] * Hepatitis B core antibody, total Blood (08/08/2025 8:31 AM CDT) Hep B core IgG/IgM Nonreactive Nonreactive Comment:Testing performed by : [facility], [address] [facility] [place], [place]., [address] Blood 08/08/2025 8:31 AM CDT 08/08/2025 11:02 AM CDT Sheba Acevedo MD LAB MICROBIOLOGY - GENERAL ORDER TIMOTEO Final Result [address] [place] [address] * RPR Blood (08/08/2025 8:31 AM CDT) RPR Nonreactive Nonreactive Comment:Testing performed by : [facility], [address] [place]., [address] Blood 08/08/2025 8:31 AM CDT 08/08/2025 11:02 AM CDT us Sheba Acevedo MD LAB MICROBIOLOGY - GENERAL ORDER TIMOTEO Final Result Performing Organization Address [facility] de Phone Number [address] [place] [address] * Hepatitis B surface antibody (immune status) Blood (08/08/2025 8:31 AM CDT) Pathologist [facility] HBsAb (immune status) Nonreactive Comment: Interpretive Data Nonreactive: This result is consistent with a lack of immunity to Hepatitis B Virus when used in the setting of routine screening. Equivocal: The immune status of the individual should be further assessed, if appropriate, after consideration of clinical status, risk factors, and additional diagnostic information. Reactive: This result is consistent with immunity to Hepatitis B Virus when used in the setting of routine screening. Current interpretive data was last revised on 20. Blood 08/08/2025 8:31 AM CDT 08/08/2025 8:35 AM CDT us Sheba Acevedo MD LAB MICROBIOLOGY - GENERAL ORDER TIMOTEO Final Result Performing Organization Address [facility] Co de Phone Number [address] [place] [address] * TSH (08/08/2025 8:31 AM CDT) Pathologist [facility] Thyroid Stimulating Hormone 1.39 0.30 - 4.20 mcIUnit/mL Blood 08/08/2025 8:31 AM CDT 08/08/2025 8:35 AM CDT us Sheba Acevedo MD LAB BLOOD ORDERABLES Final Resul t [facility] [address] [facility] [place] [address] * (ABNORMAL) Lipid panel (08/08/2025 8:31 AM CDT) Cholesterol 198 30 - 199 mg/dL Comment: Interpretive Data Ages < or = 19 years Acceptable: <170 mg/dL Borderline high: 170-199 mg/dL High: >or= 200 mg/dL Ages > or = 20 years Desirable: <200 mg/dL Borderline high: 200-239 mg/dL High: >or= 240 mg/dL Literature References: 1. Expert Panel on Integrated Guidelines for Cardiovascular Health and Risk Reduction in Children and Adolescents. Pediatrics 2011;128:S213 2. NCEP Expert Panel. Circulation 2004;110:227 Current Interpretive Data was last revised on 2018. Triglycerides 146 <=149 mg/dL GALINDO Comment: Interpretive Data Ages < or = 9 years Acceptable: <75 mg/dL Borderline high: 75-99 mg/dL High: >or= 100 mg/dL Ages 10 to 20 years Acceptable: <90 mg/dL Borderline high: 90-129 mg/dL High: >or= 130 mg/dL Ages > or = 20 years Desirable: <150 mg/dL Borderline high: 150-199 mg/dL High: 200-499 mg/dL Very high: >or= 499 mg/dL Literature References: 1. Expert Panel on Integrated Guidelines for Cardiovascular Health and Risk Reduction in Children and Adolescents. Pediatrics 2011;128:S213 2. NCEP Expert Panel. Circulation 2004;110:227 Current Interpretive Data was last revised on 2018. HDL 40 >=40 mg/dL GALINDO Comment: Interpretive Data Ages < or = 19 years Acceptable: >45 mg/dL Borderline low: 40-45 mg/dL Low: <40 mg/dL Ages > or = 20 years Desirable: >or= 60 mg/dL Low: <40 mg/dL Literature References: 1. Expert Panel on Integrated Guidelines for Cardiovascular Health and Risk Reduction in Children and Adolescents. Pediatrics 2011;128:S213 2. NCEP Expert Panel. Circulation 2004;110:227 Current Interpretive Data was last revised on 2018. LDL, calculated 132(H) <=129 mg/dL GALINDO JAIN Comment: Interpretive Data Ages < or = 19 years Acceptable: <110 mg/dL Borderline high: 110-129 mg/dL High: >or= 130 mg/dL Ages > or = 20 years Optimal: <100 mg/dL Near optimal: 100-129 mg/dL Borderline high: 130-159 mg/dL High: >160 mg/dL Calculated using the Ari LDL-C estimating equation. This equation was implemented on 2024. Prior to this date LDL-C was estimated using the Friedewald equation. Literature References: 1. Expert Panel on Integrated Guidelines for Cardiovascular Health and Risk Reduction in Children and Adolescents. Pediatrics 2011;128:S213 2. NCEP Expert Panel. Circulation 2004;110:227 3. Ari Gambino et al. CARMEN Cardiol. 2019March 01;5(5):540-548. doi: [email or web address] Current Interpretive Data was last revised on 2024. Non-HDL Cholesterol 158 mg/dL GALINDO JAIN Comment: Interpretive Data Ages < or = 19 years Acceptable: <120 mg/dL Borderline high: 120-144 mg/dL High: >145 mg/dL Ages > or = 20 years When triglycerides are >200 mg/dL, Non-HDL cholesterol is a secondary target of therapy with treatment goals that are 30 mg/dL greater than the LDL cholesterol target. Literature References: 1. Expert Panel on Integrated Guidelines for Cardiovascular Health and Risk Reduction in Children and Adolescents. Pediatrics 2011;128:S213 2. NCEP Expert Panel. Circulation 2004;110:227 Current Interpretive Data was last revised on 2018. Chol/HDL ratio 5 GALINDO JAIN Blood 08/08/2025 8:31 AM CDT 08/08/2025 8:35 AM CDT us Sheba Acevedo MD LAB BLOOD ORDERABLES Final Resul t [facility] [address] [facility] [place] [address] * (ABNORMAL) Comprehensive metabolic panel (08/08/2025 8:31 AM CDT) Sodium 136 135 - 145 mmol/L Potassium, pl 4.4 3.3 - 4.9 mmol/L [facility] Chloride 101 97 - 110 mmol/L [facility] CO2 22 22 - 32 mmol/L [facility] Anion gap 13 2 - 15 mmol/L [facility] BUN 13 6 - 25 mg/dL [facility] Creatinine 0.75 0.60 - 1.10 mg/dL [facility] Glucose 270(H) 70 - 199 mg/dL [facility] Comment: Interpretive Data Fasting glucose >/= 126 mg/dl is diagnostic for diabetes. Fasting is defined as no caloric intake for at least 8 hours. Fasting glucose between 100 mg/dl to 125 mg/dl is diagnostic of prediabetes. In a patient with classic symptoms of hyperglycemia or hyperglycemic crisis, a random glucose >/= 200 mg/dl is diagnostic for diabetes. In the absence of unequivocal hyperglycemia, results should be confirmed by repeat testing. The classification and Diagnosis of Diabetes Diabetes Care 2021; 46: S19-S40. Current interpretive data was last revised 2022. Calcium 8.9 8.5 - 10.3 mg/dL [facility] Bilirubin, total 0.2 0.1 - 1.2 mg/dL [facility] Protein, pl 7.0 6.5 - 8.5 g/dL [facility] Albumin 3.8 3.5 - 5.0 g/dL [facility] Alk phos 155(H) 40 - 130 Units/L [facility] ALT 15 7 - 45 Units/L [facility] AST 20 10 - 45 Units/L [facility] Blood 08/08/2025 8:31 AM CDT 08/08/2025 8:35 AM CDT us Sheba Acevedo MD LAB BLOOD ORDERABLES Final Resul t [facility] [address] [facility] [place] [address] from Last 3 Months Insurance [facility] [place] Care Teams Hearing Aid Consultant Relationship Specialty Start Date End Date No, Physician PCP - General 08/08/25
--- OUTSIDE RECORDS SUMMARY | 2025-09-01 10:34 | XMS_ITS | Data Portability ---
Author Organization [facility], Main Office Address [address] [place] [address] Assessment Encounter Date Assessment Date Assessment LastModified by Organization Details LastModified Time 02/25/2023 02/25/2023 Assessment: Mod persistent asthma Nicotine smoke: 1 ppd 1991-present = 31 pack years Granulomatous disease (lung, spleen) OSAHS, patient declined study Plan: The following were reviewed and explained to the patient: Lab data 02/26/22 PFT 08/10/22 nl FEV1/FVC, FEV1 2.48 L (91%), BD 230 mL = 10% [facility] 10/11/22 Tamiflu for flu [facility] hospitalization 10/13/22 - 10/15/22 Duoneb, methylprednisolone , ceftriaxone, and azithromycin for pneumonia Chest CT 03/10/22 RUL 3 mm nodule, no ILD Chest CT 04/09/22 no rib fractures, granulomatous disease (lung, spleen), hepatic steatosis, thoracic DDD Chest CT 10/13/22 bilateral GGO Repeat chest CT to follow up on the GGO. Patient did not do this in the interim since the last visit. Nicotine cessation counseling provided. Olpe for quitting nicotine include getting ready, getting support and encouragement, learning new skills and behaviors and being prepared to handle slips. Tips for dealing with cravings provided. Prevention of subsequent illnesses from nicotine addiction discussed. Comorbidities include but are not limited to hypertension, cerebrovascular disease, coronary heart disease, congestive heart failure, hyperlipidemia, COPD/asthma, peptic ulcer disease, esophagitis/gastri tis, and osteoporosis. Therapy options offered include: Quitting by total abstinence Receiving nicotine replacement therapy Undergoing hypnosis Filling a bupropion or varenicline prescription Enrolling in Quit For Life program Registering at [email or web address] Making a call to 4-480-VPBS-NOW ( ). A strong, clear, personalized message was given to the patient to quit smoking. The patient was urged to set a quit date. We discussed patient's barriers to quitting and I will be of assistance when patient is ready to quit. I encouraged patient to inform friends and family of plans to quit with a request for support. I encouraged the patient to remove all cigarettes from the environment. We reviewed any previous quit attempts and lessons learned from them. I encouraged total abstinence from smoking and advised the patient that drinking alcohol and/or associating with other smokers are associated with failure or relapse. Patient can enroll in [facility]'s smoking cessation class through Suki Olivera RN at . Enrollment is free and classes are held every wednesday of the month from 1:30 pm to 2:30 pm at the conference room next to the cafeteria on the ground floor. Differential diagnoses for pulmonary nodule: 1. malignant tumor 2. benign tumor 3. inflammatory processes 4. infectious process (viral, bacterial, fungal, atypical mycobacterial) The Fleischner Society pulmonary nodule recommendations below pertain to the follow-up and management of indeterminate pulmonary nodules detected incidentally on CT and are published by the Fleischner Society. The guideline does not apply to lung cancer screening, patients younger than 35 years, or patients with a history of primary cancer or immunosuppression. These recommendations reflect the 2017 revision 4, which supersedes prior versions published in 2005 and 2013. Single solid nodule <6 mm (<100 mm3) *low-risk patients: no routine follow-up required *high-risk patients: optional CT at 12 months (particularly with suspicious nodule morphology and/or upper lobe location) Single solid nodule 6-8 mm (100-250 mm3) *low-risk patients: CT at 6-12 months, then consider CT at 18-24 months *high-risk patients: CT at 6-12 months, then CT at 18-24 months Single solid nodule >8 mm (>250 mm3) *low-risk and high-risk patients: consider CT at 3 months, PET/CT, or tissue sampling General information on bronchial asthma was covered. Patient will monitor peak flow daily at a set time and again when symptoms of chest tightness, cough, dyspnea or wheezing occur. Patient will bring peak flow record to subsequent visits. The color of a traffic light will guide the patient's use of asthma medications: (1) Green means Go Zone. Peak flow: above 80% of personal best. Symptoms: Breathing is good, no cough or wheeze present, patient sleeps through the night and can work and play. Plan: Patient will continue the use of preventative medicine. (2) Yellow means Caution Zone. Peak flow: between 50-80% of personal best. Symptoms: Presence of first signs of a cold, exposure to known trigger, mild wheeze, tight chest and coughing especially night. Plan: Patient will add quick-relief medicine to preventative medicine. (3) Red means Danger Zone. Peak flow: below 50% of personal best. Symptoms: Asthma is getting worse quickly and medicine is not helping, breathing is hard and fast, nose opens widely when breathing, ribs showing when breathing, and patient cannot speak in full sentences. Plan: Patient will get help from a physician immediately. Continue albuterol HFA as needed. Continue Symbicort HFA 160/4.5 mcg 2 puffs BID, not 1 puff daily. Gargle after use. Continue Spiriva Respimat 1.25 mcg 2 puffs daily. The patient does not know how to accurately administer the inhalers. Today, the patient was shown how to take these medications. The proper technique for delivering these medications was instructed. The patient expressed a clear understanding and demonstrated back how to use these medications. Without the proper technique, the patient will not reap the benefits of these medications as the contents will not reach the lower airways as intended to be. Adherence to therapy is advocated. Nonadherence may lead to treatment failure, further progression of the condition, and other complications. Hospitals admissions are often the result of individuals not taking prescription medications accurately. Alternatively, greater adherence to medication regimens have shown to lower rates of hospitalization and decrease total medical costs in patients with chronic medical conditions. General information on sleep disordered breathing, evaluation of sleep disordered breathing, treatment with PAP therapy, and living with PAP therapy were covered. PSG is medically necessary to determine the degree of and management of sleep apnea. Patient declined. We discussed with the patient the impact of weight on: Sleep disordered breathing Hypertension DM LONNIE Hepatic steatosis Thoracic DDD We discussed with the patient the benefit of PAP therapy on: Sleep disordered breathing Depression/Anxiety Hypertension DM LONNIE Educated the patient on sleep hygiene measures. Relaxing rituals to rest easy, understanding foods with positive and negative impact on sleep, creating a peaceful sleep environment, timing of exercise, using herbal sleep aids, and practicing sleep-friendly meditation were covered. To determine how much sleep is needed, the patient will assess where she falls on the spectrum, examine what lifestyle factors such as work schedules and stress are affecting the quality and quantity of sleep. In general, adults need 7-9 hours of sleep. Educated the patient regarding foods that promote sleep. These include but are not limited to cherries, bananas, toast, oatmeal, and warm milk. Educated the patient regarding foods and drinks to avoid before bedtime. These include but are not limited to aged cheese, chocolate, spicy foods, tomato-based sauces, soy, ginseng tea and processed meat. Advocated influenza vaccination annually and pneumonia vaccination in 2036. Advocated weight loss through diet and exercise. Patient's ideal body weight according to height and gender is up to 145 lbs. Encouraged patient to adjust caloric intake to maintain/achieve ideal body weight, emphasizing on fruits, vegetables, whole grains, and fat-free or low-fat products. These include lean meats, poultry, fish, beans, eggs, and nuts and foods that are low in saturated fats, trans-fats, cholesterol, salt (sodium), and glycemic index. Stressed the importance of regular exercise up to the patient's capacity limits. In this case, we recommend 20 min daily walking, 2 days a week of resistance training. Patient to monitor BP daily and bring records to PCP for further management. Follow-up: [address] Not available 02/25/2023 11:42:24 03/18/2023 03/18/2023 Assessment: Mod persistent asthma Nicotine smoke: 1 ppd 1991-present = 31 pack years Granulomatous disease (lung, spleen) MALIK Plan: The following were reviewed and explained to the patient: Lab data 02/26/22 PFT 08/10/22 nl FEV1/FVC, FEV1 2.48 L (91%), BD 230 mL = 10% [facility] 10/11/22 Tamiflu for flu [facility] hospitalization 10/13/22 - 10/15/22 Duoneb, methylprednisolone , ceftriaxone, and azithromycin for pneumonia Chest CT 03/10/22 RUL 3 mm nodule, no ILD Chest CT 04/09/22 no rib fractures, granulomatous disease (lung, spleen), hepatic steatosis, thoracic DDD Chest CT 10/13/[address] 03/11/23 resolved GGO, RML calcified granuloma, calcified right hilar LNs, calcified spleen granulomas Nicotine cessation counseling provided. Olpe for quitting nicotine include getting ready, getting support and encouragement, learning new skills and behaviors and being prepared to handle slips. Tips for dealing with cravings provided. Prevention of subsequent illnesses from nicotine addiction discussed. Comorbidities include but are not limited to hypertension, cerebrovascular disease, coronary heart disease, congestive heart failure, hyperlipidemia, COPD/asthma, peptic ulcer disease, esophagitis/gastri tis, and osteoporosis. Therapy options offered include: Quitting by total abstinence Receiving nicotine replacement therapy Undergoing hypnosis Filling a bupropion or varenicline prescription Enrolling in Quit For Life program Registering at [email or web address] Making a call to 3-553-AXUX-NOW ( ). A strong, clear, personalized message was given to the patient to quit smoking. The patient was urged to set a quit date. We discussed patient's barriers to quitting and I will be of assistance when patient is ready to quit. I encouraged patient to inform friends and family of plans to quit with a request for support. I encouraged the patient to remove all cigarettes from the environment. We reviewed any previous quit attempts and lessons learned from them. I encouraged total abstinence from smoking and advised the patient that drinking alcohol and/or associating with other smokers are associated with failure or relapse. Patient can enroll in [facility]'s smoking cessation class through Suki Olivera RN at . Enrollment is free and classes are held every wednesday of the month from 1:30 pm to 2:30 pm at the conference room next to the cafeteria on the ground floor. The nicotine patches she used during the did not relieve her craving. She is smoking less now and wants to try nicotine gums/lozenges instead. Differential diagnoses for pulmonary nodule: 1. malignant tumor 2. benign tumor 3. inflammatory processes 4. infectious process (viral, bacterial, fungal, atypical mycobacterial) The Fleischner Society pulmonary nodule recommendations below pertain to the follow-up and management of indeterminate pulmonary nodules detected incidentally on CT and are published by the Fleischner Society. The guideline does not apply to lung cancer screening, patients younger than 35 years, or patients with a history of primary cancer or immunosuppression. These recommendations reflect the 2017 revision 4, which supersedes prior versions published in 2005 and 2013. Single solid nodule <6 mm (<100 mm3) *low-risk patients: no routine follow-up required *high-risk patients: optional CT at 12 months (particularly with suspicious nodule morphology and/or upper lobe location) Single solid nodule 6-8 mm (100-250 mm3) *low-risk patients: CT at 6-12 months, then consider CT at 18-24 months *high-risk patients: CT at 6-12 months, then CT at 18-24 months Single solid nodule >8 mm (>250 mm3) *low-risk and high-risk patients: consider CT at 3 months, PET/CT, or tissue sampling General information on bronchial asthma was covered. Patient will monitor peak flow daily at a set time and again when symptoms of chest tightness, cough, dyspnea or wheezing occur. Patient will bring peak flow record to subsequent visits. The color of a traffic light will guide the patient's use of asthma medications: (1) Green means Go Zone. Peak flow: above 80% of personal best. Symptoms: Breathing is good, no cough or wheeze present, patient sleeps through the night and can work and play. Plan: Patient will continue the use of preventative medicine. (2) Yellow means Caution Zone. Peak flow: between 50-80% of personal best. Symptoms: Presence of first signs of a cold, exposure to known trigger, mild wheeze, tight chest and coughing especially night. Plan: Patient will add quick-relief medicine to preventative medicine. (3) Red means Danger Zone. Peak flow: below 50% of personal best. Symptoms: Asthma is getting worse quickly and medicine is not helping, breathing is hard and fast, nose opens widely when breathing, ribs showing when breathing, and patient cannot speak in full sentences. Plan: Patient will get help from a physician immediately. Continue albuterol HFA as needed. Continue Symbicort HFA 160/4.5 mcg 2 puffs BID, not 1 puff daily. Gargle after use. Continue Spiriva Respimat 1.25 mcg 2 puffs daily. The patient does not know how to accurately administer the inhalers. Today, the patient was shown how to take these medications. The proper technique for delivering these medications was instructed. The patient expressed a clear understanding and demonstrated back how to use these medications. Without the proper technique, the patient will not reap the benefits of these medications as the contents will not reach the lower airways as intended to be. Adherence to therapy is advocated. Nonadherence may lead to treatment failure, further progression of the condition, and other complications. Hospitals admissions are often the result of individuals not taking prescription medications accurately. Alternatively, greater adherence to medication regimens have shown to lower rates of hospitalization and decrease total medical costs in patients with chronic medical conditions. General information on sleep disordered breathing, evaluation of sleep disordered breathing, treatment with PAP therapy, and living with PAP therapy were covered. PSG is medically necessary to determine the degree of and management of sleep apnea. We discussed with the patient the impact of weight on: Sleep disordered breathing Hypertension DM LONNIE Hepatic steatosis Thoracic DDD We discussed with the patient the benefit of PAP therapy on: Sleep disordered breathing Depression/Anxiety Hypertension DM LONNIE Educated the patient on sleep hygiene measures. Relaxing rituals to rest easy, understanding foods with positive and negative impact on sleep, creating a peaceful sleep environment, timing of exercise, using herbal sleep aids, and practicing sleep-friendly meditation were covered. To determine how much sleep is needed, the patient will assess where she falls on the spectrum, examine what lifestyle factors such as work schedules and stress are affecting the quality and quantity of sleep. In general, adults need 7-9 hours of sleep. Educated the patient regarding foods that promote sleep. These include but are not limited to cherries, bananas, toast, oatmeal, and warm milk. Educated the patient regarding foods and drinks to avoid before bedtime. These include but are not limited to aged cheese, chocolate, spicy foods, tomato-based sauces, soy, ginseng tea and processed meat. Advocated influenza vaccination annually and pneumonia vaccination in 2036. Advocated weight loss through diet and exercise. Patient's ideal body weight according to height and gender is up to 145 lbs. Encouraged patient to adjust caloric intake to maintain/achieve ideal body weight, emphasizing on fruits, vegetables, whole grains, and fat-free or low-fat products. These include lean meats, poultry, fish, beans, eggs, and nuts and foods that are low in saturated fats, trans-fats, cholesterol, salt (sodium), and glycemic index. Stressed the importance of regular exercise up to the patient's capacity limits. In this case, we recommend 20 min daily walking, 2 days a week of resistance training. Patient to monitor BP daily and bring records to PCP for further management. Follow-up: 1 week after home sleep study Not available 03/18/2023 10:58:11 12/12/2024 12/12/2024 54-year-old patient presents today with a right little finger pain after hitting it on a coffee table on 11/30/2024. She states that she did not feel pain at the time but a day later the finger became swollen so she presented to the emergency room. X-rays were taken and she was told she had a fracture she. She was placed in a splint and told to follow up with us. Today she presents with no splint and she says it was very uncomfortable. Rates her pain 6/10. She states that she has diabetes and neuropathy which causes her to have decreased sensation in her fingers. Denies any issues with this hand in the past. She is right-handed. Review of systems per patient questionnaire Imaging: X-rays reviewed show a mildly displaced spiral fracture of the right 5th finger middle phalanx. physical exam: The finger is swollen. Pain with palpitation. Able to perform gentle range of motion. Sensation slightly decreased. We discussed the treatment will be immobilization or aury taping. She feels that aury taping is not very comfortable. We fit her for a new finger splint today that she says is more comfortable. We discussed wearing it at all times in restricting use of that hand. We also discussed icing, elevating, and taking anti-inflammatorie s as needed. We can see her back in 2-3 weeks with repeat x-rays to check her progress. She is in agreement with this plan. [email or web address] Not available 12/12/2024 15:34:12 Plan of Treatment Reminders Order Date Submit Date Provider Last Modified By Organization Details Last Modified Time Details Appointments Any 30 2024 09:00A Immanuel Vivas MD Not available Not available Not available Lab None recorded. Referral None recorded. Procedures None recorded. Surgeries None recorded. Imaging home sleep study 2022 023 [email or web address] [facility], [address] [place], [address], 05/24/2024 09:44:06 CT, chest, w/o contrast - Approved [id number] 02/26/2023 - 4 2022 023 [facility] ([facility]), [address], [place], [address], 03/11/2023 11:57:41 Medication Orders albuterol sulfate HFA 90 mcg/actua tion aerosol inhaler 2022 023 [facility] #[id number], [address], [place], [address], 03/18/2023 10:47:48 Symbicort 160 mcg-4.5 mcg/actua tion HFA aerosol inhaler 2022 023 [facility] #[id number], [address], [place], [address], 03/18/2023 10:47:48 Spiriva Respimat 1.25 mcg/actua tion solution for inhalatio n 2022 023 [email or web address] [facility]/Pharmacy #[id number], [address] [place], [address], 12/12/2024 15:01:57 albuterol sulfate HFA 90 mcg/actua tion aerosol inhaler 2022 023 [facility]acy #[id number], [address], [place], [address], 02/25/2023 11:38:45 Symbicort 160 mcg-4.5 mcg/actua tion HFA aerosol inhaler 2022 023 [facility] #[id number], [address] [place], [address], 02/25/2023 11:38:45 Spiriva Respimat 1.25 mcg/actua tion solution for inhalatio n 2022 023 [email or web address] [facility]/Pharmacy #[id number], [address], [place], [address], 12/12/2024 15:01:57 Patient TargetsNo targets recorded. Patient InstructionsNo instructions recorded. Reason for Referral None Reported. Results Created Date Observation Date Name Description Value Unit Range Abnormal Flag Note LastModifiedBy Organization Detail LastModifiedTime 08/11/20 22 08/10/2022 PFT, compl ete No observ ation record ed. [id number] [place] [facility] ([facility]) [address] [facility] [place], [address], 12/30/2022 19:31:08 10/19/20 22 10/13/2022 CT, angio gram, chest , w/ contr ast No observ ation record ed. [id number] Not Available 12/30/2022 19:31:08 03/11/20 23 03/11/2023 CT, chest , w/o contr ast No observ ation record ed. [address] [place], [address], 03/11/2023 14:58:42 12/04/19 25 11/30/2024 XR, finge r(s) No observ ation record ed. [email or web address] Not Available 12/2024 11:03:23 Result Notes None recorded. Problems Name Problem SNOMED Code Status Onset Date Resolution Date Notes Provider Name and Address Organization Details Recorded Time Moderate persistent asthma 867927352 Active 023 Barrington Vivas MD [address], [place], [address], [employer] 3 11:33:32 Smoker 61255243 Active 023 Barrington Vivas MD [address], [place], [address], [employer] 3 11:33:58 Multiple nodules of lung 987656395 Active 023 Barrington Vivas MD [address], [place], [address], [employer] 3 11:38:20 Notes:Medical History: Depre ssion/Anxiety Eosinophils 310/uL IgE 269 IU/mL Alpha-1 antitrypsin PiMM 153 mg% Nicotine dependence Mod persistent asthma Granulomatous disease (lung, spleen) Obesity Hypertension T2DM LONNIE on famotidine Hepatic steatosis Thoracic DDD Procedure History: Right arm surgery 1990 Cholecystectomy with sphincterotomy 2009 Occupational History: Train transporter Problem Notes None recorded. Procedures Surgical History Date Name Laterality Status Provider Name and Address Organization Details Recorded Time Cholecystectomy completed KANG Morfin [facility] [employer] [facility] 04/29/2023 11:14:02 Imaging Results None recorded. Procedure Notes None recorded. Medical Equipment None Reported. Allergies Allergen ID Allergen Name Allergen Category Reaction Reaction Severity Criticality Documentation Date Start Date Code Code System Note Provider Name and Address Organization Details Recorded Time 54435 Toradol medicatio n hives Not available Not available 12/30/2022 22063 RxNorm Not Available [facility] 3 19:31:02 28181 ibuprofen medicatio n Not available Not available Not available 12/30/2022 5640 RxNorm Not Available [facility] 3 19:31:02 06146 tramadol medicatio n Not available Not available Not available 12/12/2024 31037 RxNorm ROBLES Mars [facility] [employer] [facility] 5 15:02:19 Medications Name Sig Start Date Stop Date Status Note LastModified by Organization Details LastModified Time amoxicillin 500 mg capsule TAKE 1 CAPSULE BY MOUTH EVERY 8 HOURS 02/26 completed Not Available Not Available Not Available metformin 500 mg tablet TAKE 1 TABLET BY MOUTH TWICE A DAY DIRECTED 12/12 completed Not Available Not Available Not Available venlafaxine ER 37.5 mg capsule,ext ended release 24 hr TAKE 1 CAPSULE BY MOUTH EVERY DAY WITH FOOD 02/26 completed Not Available Not Available Not Available prednisone 10 mg tablet TAKE 1 TABLET BY MOUTH TWICE A DAY X5 DAYS 12/12 completed Not Available Not Available Not Available venlafaxine ER 75 mg capsule,ext ended release 24 hr TAKE 1 CAPSULE BY MOUTH EVERY DAY WITH FOOD FOR 30 DAYS active Not Available Not Available No t Available benztropine 0.5 mg tablet TAKE 1 TABLET BY MOUTH TWICE A DAY FOR 30 DAYS active Not Available Not Available No t Available ipratropium 0.5 mg-albutero l 3 mg (2.5 mg base)/3 mL nebulizatio n soln INHALE THE CONTENTS OF 1 VIAL BY NEBULIZAT ION ROUTE 4 TIMES PER DAY 04/29 completed Not Available Not Available Not Available albuterol sulfate 2.5 mg/3 mL (0.083 %) solution for nebulizatio n USE 1 VIAL EVERY 4-6HRS INHALED VIA NEBULIZER NEEDED active Not Available Not Available No t Available cetirizine 10 mg tablet TAKE 1 TABLET BY MOUTH EVERY DAY 12/12 completed Not Available Not Available Not Available atorvastati n 10 mg tablet 10/21 completed Not Available Not Available Not Available azithromyci n 250 mg tablet TAKE 2 TABLETS BY MOUTH TODAY, THEN TAKE 1 TABLET DAILY FOR 4 DAYS DIRECTED 08/30 completed Not Available Not Available Not Available benzonatate 200 mg capsule TAKE 1 CAPSULE BY MOUTH THREE TIMES A DAY NEEDED 02/26 completed Not Available Not Available Not Available prednisone 20 mg tablet TAKE 1 TABLET BY MOUTH EVERY DAY IN THE MORNING WITH FOOD X5 DAYS 12/12 completed Not Available Not Available Not Available venlafaxine ER 150 mg capsule,ext ended release 24 hr TAKE 1 CAPSULE BY MOUTH EVERY DAY WITH FOOD FOR 30 DAYS active Not Available Not Available No t Available olanzapine 10 mg tablet TAKE 1 TABLET BY MOUTH EVERY DAY FOR 30 DAYS 12/12 completed Not Available Not Available Not Available hydroxyzine HCl 50 mg tablet TAKE 1 TABLET BY MOUTH THREE TIMES A DAY NEEDED FOR 30 DAYS active Not Available Not Available No t Available ciprofloxac in 500 mg tablet TAKE 1 TABLET BY MOUTH TWO TIMES A DAY FOR 7 DAYS 12/12 completed Not Available Not Available Not Available sulfamethox azole 800 mg-trimetho prim 160 mg tablet TAKE 1 TABLET BY MOUTH TWICE A DAY 10/20 completed Not Available Not Available Not Available tramadol 50 mg tablet TAKE 2 TABLETS BY MOUTH EVERY 8 HOURS NEEDED 01/29 completed Not Available Not Available Not Available oxycodone-a cetaminophe n 5 mg-325 mg tablet TAKE 1 TABLET BY MOUTH EVERY 6 HOURS NEEDED FOR PAIN 08/17 completed Not Available Not Available Not Available amoxicillin 875 mg tablet TAKE 1 TABLET BY MOUTH TWICE A DAY FOR 7 DAYS 12/12 completed Not Available Not Available Not Available trazodone 100 mg tablet TAKE 2 TABLETS BY MOUTH ONCE A DAY AT BEDTIME NEEDED 30 DAYS active Not Available Not Available No t Available OneTouch Ultra Test strips USE TO TEST ONCE DAILY 11/22 completed Not Available Not Available Not Available phenazopyri dine 100 mg tablet TAKE 1 TABLET BY MOUTH EVERY 8 HOURS NEEDED FOR BLADDER SPASMS 12/12 completed Not Available Not Available Not Available benzonatate 100 mg capsule TAKE 1 CAPSULE BY MOUTH EVERY 8 HOURS NEEDED 10/20 completed Not Available Not Available Not Available fluvoxamine 100 mg tablet TAKE 3 TABLETS BY MOUTH EVERY EVENING 02/26 completed Not Available Not Available Not Available oseltamivir 75 mg capsule TAKE 1 CAPSULE BY MOUTH EVERY 12 HOURS FOR 5 DAYS 10/20 completed Not Available Not Available Not Available metformin 1,000 mg tablet TAKE 1 TABLET BY MOUTH TWICE A DAY DIRECTED 02/26 completed Not Available Not Available Not Available triamcinolo ne acetonide 0.1 % topical ointment APPLY TO AFFECTED AREA TWICE A DAY 10/20 completed Not Available Not Available Not Available lisinopril 10 mg tablet TAKE 1 TABLET BY MOUTH EVERY DAY active Not Available Not Available No t Available nicotine 21 mg/24 hr daily transdermal patch APPLY 1 PATCH TRANSDERM ALLY DAILY 01/29 completed Not Available Not Available Not Available gabapentin 300 mg capsule TAKE 1 CAPSULE BY MOUTH THREE TIMES A DAY active Not Available Not Available No t Available olanzapine 15 mg tablet TAKE 1 TABLET BY MOUTH EVERY DAY FOR 30 DAYS 12/12 completed Not Available Not Available Not Available furosemide 20 mg tablet TAKE 1 TABLET BY MOUTH EVERY DAY NEEDED 12/12 completed Not Available Not Available Not Available levofloxaci n 750 mg tablet TAKE 1 TABLET BY MOUTH EVERY DAY 10/20 completed Not Available Not Available Not Available methylpredn isolone 4 mg tablets in a dose pack TAKE 6 TABLETS ON DAY 1 DIRECTED ON PACKAGE AND DECREASE BY 1 TAB EACH DAY FOR A TOTAL OF 6 DAYS 02/26 completed Not Available Not Available Not Available albuterol sulfate HFA 90 mcg/actuati on aerosol inhaler INHALE TWO PUFFS BY MOUTH EVERY 4-6 HOURS NEEDED active Not Available Not Available No t Available pioglitazon e 30 mg tablet TAKE 1 TABLET BY MOUTH EVERY DAY 08/17 completed Not Available Not Available Not Available fluticasone propionate 50 mcg/actuati on nasal spray,suspe nsion USE 1 SPRAY IN EACH NOSTRIL EVERY NIGHT BEFORE BED 12/12 completed Not Available Not Available Not Available amoxicillin 875 mg-potassiu m clavulanate 125 mg tablet TAKE 1 TABLET BY MOUTH TWICE A DAY 12/12 completed Not Available Not Available Not Available amoxicillin 500 mg-potassiu m clavulanate 125 mg tablet TAKE 1 TABLET BY MOUTH EVERY 12 HOURS 12/12 completed Not Available Not Available Not Available aripiprazol e 5 mg tablet TAKE 1 TABLET BY MOUTH EVERY DAY FOR 30 DAYS active Not Available Not Available No t Available nitrofurant oin monohydrate /macrocryst als 100 mg capsule TAKE 1 CAPSULE BY MOUTH TWICE A DAY 12/12 completed Not Available Not Available Not Available Oysco 500/D 500 mg-5 mcg (200 unit) tablet TAKE 1 TABLET BY MOUTH TWICE A DAY WITH MEALS 04/29 completed Not Available Not Available Not Available Symbicort 160 mcg-4.5 mcg/actuati on HFA aerosol inhaler INHALE 2 PUFFS BY MOUTH TWICE DAILY active Not Available Not Available No t Available liraglutide 0.6 mg/0.1 mL (18 mg/3 mL) subcutaneou s pen injector INJECT 1.2 MG UNDER THE SKIN ONCE DAILY active Not Available Not Available No t Available lurasidone 40 mg tablet TAKE 1 TABLET BY MOUTH EVERY DAY IN THE EVENING WITH FOOD 12/12 completed Not Available Not Available Not Available Spiriva Respimat 1.25 mcg/actuati on solution for inhalation INHALE 2 PUFFS INTO THE LUNGS EVERY DAY 12/12 completed Not Available Not Available Not Available TRUEplus Pen Needle 31 gauge x 3/16 USE DIRECTED with victoza 08/30 completed Not Available Not Available Not Available Vitals Date Recorded Body height Body mass index (BMI) Body weight Provider Name and Address Organization Details Last Updated DateTime 12/12/2024 170.18 cm 39.5 kg/m2 095825.28 g [facility]BL[facility] [employer] 12/12/2024 14:58:59 Date Recorded Heart rate Oxygen saturation Oxygen saturation in Arterial blood by Pulse oximetry Heart rate Respiratory rate Provider Name and Address Organization Details Last Updated DateTime 3 99 /min 95 % 95 % 99 /min 15 /min Barrington Vivas MD [address], [facility], [place], [address], [facility] [employer] [facility] 3 11:31:01 Date Recorded Body height Body mass index (BMI) Body weight Body temperature Systolic And Diastolic Provider Name and Address Organization Details Last Updated DateTime 02/25/2023 170.18 cm 49.3 kg/m2 014998. 6 g 98.6 [degF] 124/80 mm[Hg] Barbara Ahmadi MA [facility] [employer] [facility] 3 11:11:06 Date Recorded Heart rate Respiratory rate Provider N dayna and Address Organization Details Last Updated DateTime 03/18/2023 98 /min 15 /min Barrington Vivas MD [address] [facility], [facility] [address], [place], [address], [facility] [employer] [facility] 03/18/2023 11:01:06 Date Recorded Body height Body mass index (BMI) Body weight Heart rate Oxygen saturation Oxygen saturation in Arterial blood by Pulse oximetry Body temperature Systolic And Diastolic Provider Name and Address Organization Details Last Updated DateTime 3 170.18 cm 49.2 kg/m2 386248 g 98 /min 96 % 96 % 98.7 [degF] 122/76 mm[Hg] Barbara Ahmadi MA [facility] [employer] [facility] 3 10:48:14 Date Recorded Body mass index (BMI) Heart rate Body height Oxygen saturation Oxygen saturation in Arterial blood by Pulse oximetry Heart rate Respiratory rate Body temperature Body weight Systolic And Diastolic Provider Name and Address Organization Details Last Updated DateTime 2 51.1 kg/m2 98 /min 170.18 cm 96 % 96 % 98 /min 17 /min 98.1 [degF] 030591. 83 g 130/88 mm[Hg] Not Available [employer] 3 19:28:21 Date Recorded Body mass index (BMI) Heart rate Body height Oxygen saturation Oxygen saturation in Arterial blood by Pulse oximetry Heart rate Respiratory rate Body temperature Body weight Systolic And Diastolic Provider Name and Address Organization Details Last Updated DateTime 2 49.7 kg/m2 93 /min 170.18 cm 97 % 97 % 93 /min 16 /min 97.8 [degF] 068326. 22 g 120/86 mm[Hg] Not Available [facility] 19:28:21 Social History Question Answer Notes LastModified by Organizat ion Details LastModified Time Tobacco Smoking Status Current Every Day Smoker Not Available [facility] 12/30/2022 19:27:55 What Is Your Level Of Caffeine Consumption? Moderate [id number] Information not available 12/30/2022 In The 14 Days Before Symptom Onset, Have You Had Close Contact With A Laboratory-confi rmed COVID-19 While That Case Was Ill? No [id number] Information not available 12/30/2022 In The 14 Days Before Symptom Onset, Have You Had Close Contact With A Person Who Is Under Investigation For COVID-19 While That Person Was Ill? No [id number] Information not available 12/30/2022 What Type Of Diet Are You Following? DIABETIC [id number] Information not available 12/30/2022 Which Illicit Or Recreational Drugs Have You Used? Marijuana [id number] Information not available 12/30/2022 What Is The Highest Grade Or Level Of School You Have Completed Or The Highest Degree You Have Received? [id number] [id number] Information not available 12/30/2022 Do You Have An Electrostatic Air Filter? No [id number] Information not available 12/30/2022 Are There Any Guns Present In Your Home? No MIGRATION.00406 [id number] Information not available 12/30/2022 Do You Have A Humidifier? No [id number].[id number] Information not available 12/30/2022 Where Do You Live? [place] MIGRATION.[id number] Information not available 12/30/2022 Do You Have Moisture Problems In Your Home? No [id number] Information not available 12/30/2022 What Was The Date Of Your Most Recent Tobacco Screening? 02/25/2023 Information not available 02/25/2023 What Is Your Current Pack Years? 30ormorepackyears [id number].[id number] Information not available 12/30/2022 Do You Have Any Pets? Yes [id number].95245 [id number] Information not available 12/30/2022 Do You Use Your Seat Belt Or Car Seat Routinely? Yes Information not available 02/25/2023 Do You Have Smoke And Carbon Monoxide Detectors In Your Home? Yes [id number] Information not available 12/30/2022 At What Age Did You Start Smoking Tobacco? 14 [id number].45401 [id number] Information not available 12/30/2022 Are You Passively Exposed To Smoke? No [id number].34213 [id number] Information not available 12/30/2022 How Much Tobacco Do You Smoke? 1 PPD [email or web address] Information not available 04/29/2023 Do You Use Sunscreen Routinely? No [id number].69095 [id number] Information not available 12/30/2022 How Many Years Have You Smoked Tobacco? 40 Information not available 12/12/2024 Have You Recently Traveled Abroad? No [id number].59133 [id number] Information not available 12/30/2022 Do You Have Any Dietary Restrictions? No MIGRATION.88247 00392 Information not available 12/30/2022 Sex: Unknown Functional Status Question Answer Note LastModified by [employer] Details LastModified Time Do you use any illicit or recreational drugs? Yes [id number] Information not available 12/30/2022 What is your level of alcohol consumption? 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 Occasional [id number] Information not available 12/30/2022 Mental Status Question Answer Note LastModified by Organizat ion Details LastModified Time Do you feel stressed (tense, restless, nervous, or anxious, or unable to sleep at night)? [id number] Information not available 12/30/2022 Family History Relationship Description Onset Age of this Age Resolved Age Notes LastModified by Organization Details LastModified Time Father Heart disease [id number] Not available 12/30/2022 19:28:14 Father Hypertensive disorder [id number] Not available 12/30/2022 19:28:14 Father Hyperlipidem ia [id number] [id number] Not available 12/30/2022 19:28:14 Father Chronic obstructive pulmonary disease [id number] Not available 12/30/2022 19:28:14 Father Diabetes mellitus [id number] Not available 12/30/2022 19:28:14 Father Obstructive sleep apnea syndrome [id number].298 [id number] Not available 12/30/2022 19:28:14 Mother Malignant neoplasm of lung [id number].307 [id number] Not available 12/30/2022 19:28:14 Brother Obstructive sleep apnea syndrome [id number].807 [id number] Not available 12/30/2022 19:28:14 Father Harmful pattern of use of alcohol [email or web address] Not available 2022 11:12:34 Father Asthma [email or web address] Not available 0 04/29/2023 11:12:52 Medical History Condition Response DIABETES, TYPE Y ANXIETY DISORDER Y ANEMIA/BLOOD DISORDER Y GERD/NAUSEA Y HYPERTENSION Y HIGH CHOLESTEROL / HYPERLIPIDEMIA Y Gynecological HistoryNo gynecological history recorded. Obstetrics History GPAL:G 0 P 0 0 0 0 Immunizations Vaccine Type Date Status Note Provider Nam e and Address Organization Details Recorded Time COVID-19, mRNA, LNP-S, PF, 30 mcg/0.3 mL dose 10/22/2021 completed Not Available [facility] 3 19:30:55 COVID-19, mRNA, LNP-S, PF, 30 mcg/0.3 mL dose 10/01/2021 completed Not Available [facility] 3 19:30:55 Past Encounters Encounter ID Performer Location Encounter Start Date Encounter Closed Date Diagnosis/Indication Diagnosis SNOMED-CT Code Diagnosis ICD10 Code Diagnosis IMO Codes Diagnosis Note [id number] MD VIV [facility] [address] 02/26/2022 00:00:00 02/26/2022 10:51:41 [id number] MD [facility]IV [facility] [address] 03/11/2022 00:00:00 03/11/2022 14:49:23 [id number] MD SELMA [facility] [address] 08/17/2022 00:00:00 08/17/2022 11:39:19 [id number] MD OSIEL [facility] [address] [address] 10/21/2022 00:00:00 10/21/2022 11:06:47 [id number] MD [facility]IV [facility] [address] 02/25/2023 10:41:17 02/26/2023 08:26:46 Moderate persistent asthma 399267828 J45.40 Smoker 53626653 F17.218 F17.219 Z87.891 Multiple n odules of lung 901350641 R91.8 [id number] MD [facility]IV [facility] [address] 03/18/2023 10:28:18 03/19/2023 08:17:19 Moderate persistent asthma 330836390 J45.40 Smoker 29837795 F17.218 F17.219 Z87.891 Multiple n odules of lung 748778809 R91.8 Sleep apnea 53862442 G47 .30 G47.33 G47.36 [id number] MD OSIEL [facility] [address], [facility] [address] [place] [address] 12/12/2024 14:46:05 12/12/2024 15:18:02 Pain of right hand [id number] 67784 M79.641 Health Concerns Section Related Observation LastModified by Organization Detai ls LastModified Time None Recorded Concern Status LastModified by Organization Details LastModified Time None Recorded Advance Directives Directive None Recorded Payers Insurance Date Sequence Insurance Name Policy Number Policy Roldan Covered Member ID Roldan Member ID Guarantor Name 03/01/2025 1 [facility] ON OR AFTER 05/01/21 (MEDICAID REPLACEMENT - HMO) Marissa Austin [id number] Marissa Austin Notes Date Note Type Note Provider Name and Address Organization Details Recorded Time 02/25/2023 text/html Primary care/Referring provider: Ruba Apple is here to update her asthma management.Initial development of shortness of breath: 1988Duration of shortness of breath: 34 yearsCondition of shortness of breath: stableTiming of shortness of breath: night timeFrequency: every hourLimits activities: yesAggravating factors: walkingAlleviating factors: restModified [employer] [place] (mMRC) Dyspnea Scale - Grade 2Grade 0 I only get breathless with strenuous exercise .Grade 1 I get short of breath when hurrying on the level or walking up a slight hill .Grade 2 I walk slower than people of the same age on the level because of breathlessness or have to stop for breath when walking at my own pace on the level .Grade 3 I stop for breath after walking about 100 yards or after a few minutes on the level .Grade 4 I am too breathless to leave the house or I am breathless when dressing .Treatment history:albuterol HFA as needed since 1988Advair diskus only in 2015Symbicort HFA 160/4.5 mcg 1 puff daily since atient's personal best peak flow remains at 320 L/min.Other symptoms:Productive cough: yellowWheezing: yesChest tightness: yesOrthopnea: noFrequent throat clearing or swallowing: noPalpitations: noHeartburn: yesDysphagia: noEdema: yesEnvironmental exposures:Nicotine smoke: 1 ppd 1992-present = 31 pack yearsPaint: noDye: noDust mites: yesMold: yes amp basement: yes Wood burning stove: noAnimal dander: dogCockroaches: noPollen: yesArsenic: noAsbestos: noBeryllium: noCadmium: noChromium: noCoal smoke: noDiesel fumes: noNickel: noSilica: noSoot: noPatient would like to be evaluated for MALIK.Patient sleeps from 12 am to 7 am and wakes up without an alarm.Snoring: moderate, since .Snorting: noChoking: yesCoughing: yesGasping: yesGagging: noSighing: yesWitnessed apnea: yesTwitching or jerking of leg(s), arm(s), body, head: yesTeeth grinding: n/aTeeth clenching: n/aSleeptalking: noSleepwalking: noSleep crying: noBedwetting: noTongue/lip/gum/cheek biting: noSleeping with open mouth: yesSleep paralysis: noHypnagogic hallucinations: noHypnopompic hallucinations: noVivid dreams: yesDifficulty with sleep onset: yesDifficulty with sleep maintenance: yesSleep interruptions: nocturia x 3Patient wakes up with: fatigue, xerostomia, sore throat, hoarse voice, headaches, cognitive impairment, dexterity impairmentDaytime cataplexy: noMorning hypersomnolence: noAfternoon hypersomnolence: yesCaffeine sources in diet: coffee 3 cups per day, tea 2 cups per dayAssociated medical and psychiatric conditions:Congestive heart failure: noCoronary artery disease: noMyocardial infarction: noHypertension: yesStroke: noBronchial asthma: noChronic obstructive pulmonary disease: noDepression: yesBipolar disorder: noAnxiety: yesPanic disorder: noPosttraumatic stress disorder: noAttention deficit and hyperactivity disorder: noObsessive Compulsive disorder: noSchizophrenia: noSchizoaffective disorder: noPersonality disorder: noChronic analgesic use: noChronic sedative/hypnotic use: yes trazodoneEPWORTH SLEEPINESS SCALE (ESS)CHANCE OF DOZING SCORE0 = would never doze1 = slight chance of dozing2 = moderate chance of dozing3 = high chance of dozingSITUATION AND CHANCE OF DOZINGSitting and reading - 3Watching television - 3Sitting inactive in a public place (e.g. a theater or meeting) - 0As a passenger in a car for an hour without a break - 0Lying down to rest in the afternoon when circumstances permit - 3Sitting and talking to someone - 0Sitting quietly after lunch without alcohol - 1In a car, while stopped for a few minutes in the traffic - 0TOTAL SCORE 10Subjectively, patient has a moderate chance of dozing. Barrington Vivas MD [address] [place] [address], [phone], [place] [facility] 02/25/2023 11:44:45 03/18/2023 text/html Primary care/Referring provider: Roberta Aguilar MD CC: I want to return my [employer] O2 that I got from the hospital but I don't have time today to undergo the 6MW testing.Patient is here to go over her chest CT and update her asthma management.Initial development of shortness of breath: 1989Duration of shortness of breath: 35 yearsCondition of shortness of breath: stableTiming of shortness of breath: night timeFrequency: every hourLimits activities: yesAggravating factors: walkingAlleviating factors: restModified [employer] [place] (mMRC) Dyspnea Scale - Grade 2Grade 0 I only get breathless with strenuous exercise .Grade 1 I get short of breath when hurrying on the level or walking up a slight hill .Grade 2 I walk slower than people of the same age on the level because of breathlessness or have to stop for breath when walking at my own pace on the level .Grade 3 I stop for breath after walking about 100 yards or after a few minutes on the level .Grade 4 I am too breathless to leave the house or I am breathless when dressing .Treatment history:albuterol HFA as needed since 1988Advair diskus only in 2015Symbicort HFA 160/4.5 mcg 1 puff daily since atient's personal best peak flow remains at 320 L/min.Other symptoms:Productive cough: yellowWheezing: yesChest tightness: yesOrthopnea: noFrequent throat clearing or swallowing: noPalpitations: noHeartburn: yesDysphagia: noEdema: yesEnvironmental exposures:Nicotine smoke: 1 ppd 1992-present = 31 pack yearsPaint: noDye: noDust mites: yesMold: yes amp basement: yes Wood burning stove: noAnimal dander: dogCockroaches: noPollen: yesArsenic: noAsbestos: noBeryllium: noCadmium: noChromium: noCoal smoke: noDiesel fumes: noNickel: noSilica: noSoot: noPatient would like to be evaluated for MALIK. She would not be able to do an in-lab study due to hectic schedule from 2 jobs.Patient sleeps from 12 am to 7 am and wakes up without an alarm.Snoring: moderate, since .Snorting: noChoking: yesCoughing: yesGasping: yesGagging: noSighing: yesWitnessed apnea: yesTwitching or jerking of leg(s), arm(s), body, head: yesTeeth grinding: n/aTeeth clenching: n/aSleeptalking: noSleepwalking: noSleep crying: noBedwetting: noTongue/lip/gum/cheek biting: noSleeping with open mouth: yesSleep paralysis: noHypnagogic hallucinations: noHypnopompic hallucinations: noVivid dreams: yesDifficulty with sleep onset: yesDifficulty with sleep maintenance: yesSleep interruptions: nocturia x 3Patient wakes up with: fatigue, xerostomia, sore throat, hoarse voice, headaches, cognitive impairment, dexterity impairmentDaytime cataplexy: noMorning hypersomnolence: noAfternoon hypersomnolence: yesCaffeine sources in diet: coffee 3 cups per day, tea 2 cups per dayAssociated medical and psychiatric conditions:Congestive heart failure: noCoronary artery disease: noMyocardial infarction: noHypertension: yesStroke: noBronchial asthma: noChronic obstructive pulmonary disease: noDepression: yesBipolar disorder: noAnxiety: yesPanic disorder: noPosttraumatic stress disorder: noAttention deficit and hyperactivity disorder: noObsessive Compulsive disorder: noSchizophrenia: noSchizoaffective disorder: noPersonality disorder: noChronic analgesic use: noChronic sedative/hypnotic use: yes trazodoneEPWORTH SLEEPINESS SCALE (ESS)CHANCE OF DOZING SCORE0 = would never doze1 = slight chance of dozing2 = moderate chance of dozing3 = high chance of dozingSITUATION AND CHANCE OF DOZINGSitting and reading - 0Watching television - 1Sitting inactive in a public place (e.g. a theater or meeting) - 0As a passenger in a car for an hour without a break - 0Lying down to rest in the afternoon when circumstances permit - 2Sitting and talking to someone - 0Sitting quietly after lunch without alcohol - 0In a car, while stopped for a few minutes in the traffic - 0TOTAL SCORE 3Subjectively, patient has a slight chance of dozing. Barrington Vivas MD [address] [facility], [facility] [address], [place], [address], [facility] 03/18/2023 11:01:15 OBGyn Episode No OBEpisode recorded.
[2025-09-01 10:39] VITALS: BP 113/69; PULSE 99; RESP 23; O2SAT 100
[2025-09-01 10:50] VITALS: PULSE 103; RESP 24
--- NOTE | 2025-09-01 11:05 | PC.NURSE ---
Report given to Cat RN, all questions answered
--- NOTE | 2025-09-01 11:44 | ED.SOB ---
HPI - SOB/Dyspnea General Chief Complaint: Shortness of Breath/Dyspnea Stated Complaint: fever, cough, cold sx's, sob Time Seen by Provider: 09/01/25 08:59 History of Present Illness HPI Narrative: Patient is a 54-year-old female who presents ER with wheezing. Known COPD. Has had a head cold for couple weeks but began having worsening shortness breath over last 3 days. No chest pain or chest pressure. No pain with deep breath. Related Data Allergies Allergy/AdvReac Type Severity Reaction Status Date / Time ibuprofen Allergy Severe Hives Verified 09/01/25 09:25 ketorolac (From Toradol) Allergy Severe Hives Verified 09/01/25 09:25 Review of Systems Review of Systems: All systems reviewed & are unremarkable except as noted in HPI and below Constitutional: Constitutional: Reports no additional constitutional complaints Cardiovascular: Cardiovascular: Reports no additional cardiovascular complaints Respiratory: Respiratory: Reports no additional respiratory complaints Gastrointestinal: Gastrointestinal: Reports no additional gastrointestinal complaints PMFSH Past Medical History Medical History (Updated 09/01/25 @ 19:20 by Oz Cruz MD) COPD (chronic obstructive pulmonary disease) Exam Narrative: GENERAL: Well-appearing, well-nourished, and in no acute distress. HEAD: Normocephalic, atraumatic. ENT: Mucous membranes moist. CHEST: Expiratory wheezing. No respiratory distress. HEART: Tachycardic regular. Normal peripheral pulses. ABDOMEN: Soft, nontender, nondistended EXTREMITIES: Normal range of motion. No edema. SKIN: Warm, dry, no rash. NEURO: Alert and oriented x3. PSYCH: Normal mood and affect. Course Course Emergency Course: Lungs clear. Appropriate for discharge. Prednisone and DuoNeb solution for home. Vital Signs Vital signs: Vital Signs Temperature 98.4 F 09/01/25 09:19 Pulse Rate 110 H 09/01/25 09:19 Respiratory Rate 15 09/01/25 09:19 Blood Pressure 121/78 09/01/25 09:19 Pulse Oximetry 98 09/01/25 09:19 Oxygen Delivery Room Air 09/01/25 09:19 Temperature 98.4 F 09/01/25 09:19 Pulse Rate 99 09/01/25 12:13 Respiratory Rate 20 09/01/25 12:13 Blood Pressure 152/68 H 09/01/25 12:13 Pulse Oximetry 97 09/01/25 12:13 Oxygen Delivery Room Air 09/01/25 09:19 MDM - SOB/Dyspnea Differential Diagnosis Differential diagnosis: Likely acute exacerbation of chronic obstructive airways disease, congestive heart failure, community acquired pneumonia, asthma with exacerbation and pulmonary embolism Lab Data Labs: Lab Results 09/01/25 Range/Units 09:13 Influenza A (RT-PCR) Negative (Negative) Influenza B (RT-PCR) Negative (Negative) RSV (RT-PCR) Negative (Negative) SARS-CoV-2 RNA (RT-PCR) Negative (Negative) Imaging Data Radiologist's impression: ITS Impressions Chest X-Ray 09/01/25 11:11 IMPRESSION: 1. No acute cardiopulmonary findings. Discharge Plan Discharge Clinical Impression: Acute bronchitis with asthma Patient Disposition: Home Condition: Stable Instructions: Acute Bronchitis (ED) Additional Instructions: Please return to the emergency department if you develop severe and persistent chest pain, difficulty breathing, dizziness, leg swelling or if you are coughing up blood as these can be signs of a medical emergency. Please call your doctor for a follow up appointment to determine the need for further testing. Patient Language: Nigerian Prescriptions: New ipratropium-albuterol 0.5 mg-3 mg(2.5 mg base)/3 mL solution for nebulization 3 ml inhalation QID PRN (Reason: shortness of breath) Qty: 90 0RF prednisone 50 mg tablet 50 mg PO DAILY Qty: 7 0RF Follow-up/Referrals: PHYSICIAN,MEDICAL NUMERICAL CONTROL OPERATOR [Primary Care Provider, Internal Medicine] Christina Blankenship DO [Physician, Family Practice] - 1 Week
[2025-09-01 12:13] VITALS: BP 152/68; PULSE 99; RESP 20; O2SAT 97
== END 2025-09-01 12:14 | disposition home or self-care (01) ==
PROVIDERS: Emergency Provider Emergency Medicine
DX: J20.9 Acute bronchitis, unspecified (principal); J44.0 Chronic obstructive pulmonary disease with (acute) lower respiratory infection; Z20.822 Contact with and (suspected) exposure to COVID-19
CPT/HCPCS: 71046; 87637; 94640; 99284